=== PATIENT | male | born 1975 | race Caucasian/White ===

== ENCOUNTER 2019-12-30 10:55 | Emergency (ER) | payer OTHER, SELFPAY ==
[2019-12-30 10:56] VITALS: BP 193/106; PULSE 67; RESP 28; TEMP 36.6; O2SAT 98; BMI 26.9
[2019-12-30 11:22] LABS: Microscopic, Urine URINE MICROSCOPIC (MICROSCOPIC)
[2019-12-30 11:29] LABS: Basophils # 0.1 K/mm3 (0-0.2); Basophils % 0.5 % (0.1-2.0); Eosinophils # 0.1 K/mm3 (0.0-0.4); Hematocrit 51.7 % (42.0-52.0); Hemoglobin 17.4 g/dL (14.1-18.0); Lymphocytes # 2.5 K/mm3 (0.7-4.5); Lymphocytes % 18.1 % (10-50); Mean Corpuscular HGB Conc 33.6 g/dL (31.8-35.4); Mean Corpuscular Hemoglobin 31.5 pg (27.0-31.2); Mean Corpuscular Volume 93.7 fl (80-94); Mean Platelet Volume 7.9 fl (7.4-10.4); Monocytes # 0.6 K/mm3 (0.1-1.0); Neutrophils # 10.5 K/mm3 (1.8-7.8); Neutrophils % 76.3 % (37.0-80.0); Platelet Count 272 K/mm3 (142-424); Red Blood Count 5.51 M/mm3 (4.60-6.20); Red Cell Distribution Width 13.4 % (11.5-17.5); White Blood Count 13.7 K/mm3 (4.8-10.8)
[2019-12-30 11:30] LABS: Chloride 104 mmol/L (98-107); Sodium 141 mmol/L (136-145)
[2019-12-30 11:31] LABS: Potassium 4.7 mmoL/L (3.5-5.1)
[2019-12-30 11:33] LABS: Blood Urea Nitrogen 19 mg/dl (9-20); Creatinine Clearance Estimated 157 mL/min (50-200); Estimated Glomerular Filt Rate 105 ml/min (>60); GFR (African American) 126 ML/MIN (>60)
[2019-12-30 11:34] LABS: Anion Gap 14.7 mEq/L (5-15); Appearance,Urine CLEAR (Clear); Bilirubin,Urine Negative (Negative); Blood, Urine 3+ (Negative); Calcium 10.4 mg/dl (8.4-10.2); Carbon Dioxide 27 mmol/L (22.0-30.0); Color,Urine YELLOW (Yellow); Glucose 129 mg/dl (74-100); Glucose,Urine (UA) Negative (Negative); Ketones,Urine Negative (Negative); Leukocyte Esterase,Urine Negative (Negative); Nitrate,Urine Negative (Negative); PH,Urine 6.5 (5.0-8.5); Protein,Urine Negative (Negative); Urobilinogen,Urine 0.2 EU/dl (0.2)
[2019-12-30 11:39] LABS: RBC,Urine 20-50 #/hpf (0-3)
[2019-12-30 11:56] VITALS: BP 128/69; PULSE 62; O2SAT 98
--- NOTE | 2019-12-30 12:09 | HMH.EDGENADL ---
ED Disposition Clinical Impression: Right ureteral calculus Disposition: Home, Self-Care Condition on Discharge: Good Additional Instructions: Toradol as needed for pain. Zofran as needed for nausea. Flomax as prescribed. Additional instructions for KIDNEY STONE (URETERAL CALCULUS): See Dr. Mathews as soon as possible for further evaluation. Drink plenty of fluids. Strain your urine and save any stones you catch. Return immediately if you develop a fever or have uncontrollable vomiting or uncontrollable pain. Prescriptions: Ketorolac Tromethamine [Toradol 10mg tablet] 10 mg PO Q6HP PRN #10 tab PRN Reason: Moderate Pain Transmission Status: Received by [id number] Tamsulosin HCl [Flomax 0.4mg capsule] 0.4 mg PO HS #10 cap.er.24h Transmission Status: Received by [facility] Ondansetron [Zofran 4mg ODT] 4 mg PO TIDP PRN #10 tab.rapdis PRN Reason: Nausea And Vomiting Transmission Status: Received by [id number] Referrals: Jere Mixon [Primary Care Provider] - Tyrese Mathews MD [Staff Physician] - - Critical Care Critical Care Time: No Attestation: On 12/30/19, the high probability of a clinically significant, sudden or life threatening deterioration of the following system(s) required my full and direct attention, intervention and personal management. The time I documented below is in addition to time spent performing reported procedures but includes the following listed in this critical care notation. Medical Decision Making - Medical Records Medical records reviewed: Yes: I reviewed the patient's medical records. MR Comment: CT scan report obtained from [facility]. 5 mm stone distal right UVJ with mild to moderate hydroureteronephrosis. Bilateral nephrolithiasis. Diverticulosis. - Pablo Inquiry Pt receiving controlled substance: Yes Pablo was queried for this patient: No Reason not queried -: Emergent pt cond-no time Risks and benefits of using a controlled substance: were discussed with pt by me Vital Signs: 12/30/19 10:56 12/30/19 11:56 12/30/19 13:14 Temperature 98 F 98 F Temperature Source Oral Oral Pulse Rate 78 Pulse Rate [Radial] 67 62 Respiratory Rate 28 H 16 Blood Pressure 123/74 Blood Pressure [Right Arm] 193/106 H 128/69 Blood Pressure Mean [Right Arm] 135 88 Blood Pressure Position Sitting Blood Pressure Position [Right Arm] Sitting Sitting 02 Sat by Pulse Oximetry 98 98 Oxygen Delivery Method Room Air Room Air - Lab Data Lab results reviewed: Yes: I reviewed the patient's lab results. Lab Results 12/30/19 11:10: WBC 13.7 H, RBC 5.51, Hgb 17.4, Hct 51.7, MCV 93.7, MCH 31.5 H, MCHC 33.6, RDW 13.4, Plt Count 272, MPV 7.9, Neut % (Auto) 76.3, Lymph % (Auto) 18.1, [place] % (Auto) 4.0, Eos % (Auto) 1.0, Baso % (Auto) 0.5, Neut # (Auto) 10.5 H, Lymph # (Auto) 2.5, [place] # (Auto) 0.6, Eos # (Auto) 0.1, Baso # (Auto) 0.1 12/30/19 11:10: Sodium 141, Potassium 4.7, Chloride 104, Carbon Dioxide 27, Anion Gap 14.7, BUN 19, Creatinine 0.80, Estimated Creat Clear 157, Estimated GFR 105, Est GFR ( Amer) 126, Glucose 129 H, Calcium 10.4 H 12/30/19 11:10: Urine Color Yellow, Urine Appearance Clear, Urine pH 6.5, Ur Specific [place] 1.020, Urine Protein Negative, Urine Glucose (UA) Negative, Urine Ketones Negative, Urine Blood 3+, Urine Nitrate Negative, Urine Bilirubin Negative, Urine Urobilinogen 0.2, Ur Leukocyte Esterase Negative, Urine RBC 20-50, Urine WBC 3-5, Ur Squamous Epith Cells 3-5, Urine Bacteria None Result diagrams: 12/30/19 11:10 12/30/19 11:10 Orders (Tests/Meds): ED MEDICATIONS Discontinued Medications Generic Name Dose Route Start Last Admin Trade Name [place] PRN Reason Stop Dose Admin Hydromorphone HCl 1 mg 12/30/19 11:35 12/30/19 11:05 Hydromorphone 2mg/Ml Syringe IV 12/30/19 11:36 1 mg ONCE ONE Administration Hydromorphone HCl 0.5 mg 12/30/19 12:23 12/30/19 12:51 [employer]dromorp
[2019-12-30 13:14] VITALS: BP 123/74; PULSE 78; RESP 16; TEMP 36.6; O2SAT 98
== END 2019-12-30 13:17 | disposition home or self-care (01) ==
PROVIDERS: Emergency Provider Emergency Medicine; PCP Family Medicine
DX: N13.2 Hydronephrosis with renal and ureteral calculous obstruction (principal)
CPT/HCPCS: 80048; 81001; 85025; 96365; 96375; 96376; 99283; J2405

== ENCOUNTER → 2021-03-03 13:08 | Outpatient (CLI) | payer OTHER, SELFPAY | PROVIDERS: Visit Provider Nurse Practitioner | DX: Z20.822 Contact with and (suspected) exposure to COVID-19 (principal) | CPT/HCPCS: C9803; U0003; U0005 ==

== ENCOUNTER 2022-11-10 07:54 | Observation (INO) | payer BC, SELFPAY ==
[2022-11-10] VITALS (82 sets, daily range): BP systolic 106–200; BP diastolic 65–116; PULSE 71–97; RESP 10–77; TEMP 36.7–36.8; O2SAT 89–100; BMI 35.9; BMI 36.5
--- NOTE | 2022-11-10 07:56 | ECG_ITS ---
APPROVED REPORT Exam: Resting ECG HR:76 bpm ECG Measurements Heart Rate 76 AXES MA 153 P 58 QRSd 113 QRS 75 QT 376 T 71 QTc 406 Conclusion SINUS RHYTHM Late r wave progression - probable old septal infarct Old nonsignificant in size q waves noted ABNORMAL ECG UNCONFIRMED REPORT Electronically signed by : Evans Gonzalez MD 11/11/2022 07:33:37
--- NOTE | 2022-11-10 08:06 | CT_ITS ---
PROCEDURE INFORMATION: Exam: CTA Chest With Contrast Exam date and time: 11/10/2022 8:48 AM Age: 47 years old Clinical indication: Pain; Radiating; Additional info: Chest pain radiating to back TECHNIQUE: Imaging protocol: Computed tomographic angiography of the chest with contrast. Exam focused on the arteries. 3D rendering (Not supervised by radiologist): MIP and/or 3D reconstructed images were created by the technologist. Radiation optimization: All CT scans at this facility use at least one of these dose optimization techniques: automated exposure control; mA and/or kV adjustment per patient size (includes targeted exams where dose is matched to clinical indication); or iterative reconstruction. Contrast material: ISOVUE 370; Contrast volume: 100 ml; Contrast route: INTRAVENOUS (IV); REPORTING DATA: Count of CT and Cardiac NM exams in prior 12 months: This patient has received 0 known CTs and 0 known cardiac nuclear medicine studies in the 12 months prior to the current study. COMPARISON: No relevant prior studies available. FINDINGS: Pulmonary arteries: Normal. No pulmonary emboli. Aorta: Unremarkable. No aortic aneurysm. No aortic dissection. Lungs: Calcified granuloma in the right upper lobe. Pleural spaces: Unremarkable. No pneumothorax. No pleural effusion. Heart: Unremarkable. No cardiomegaly. No pericardial effusion. Lymph nodes: Calcified mediastinal lymph nodes. Bones/joints: Unremarkable. No acute fracture. Soft tissues: Unremarkable. IMPRESSION: No acute findings.
--- NOTE | 2022-11-10 08:08 | CT_ITS ---
PROCEDURE INFORMATION: Exam: CTA Abdomen and Pelvis With Contrast Exam date and time: 11/10/2022 8:48 AM Age: 47 years old Clinical indication: Abdominal pain; Generalized; Additional info: Severe chest/abd pain radiating to back TECHNIQUE: Imaging protocol: Computed tomographic angiography of the abdomen and pelvis with contrast. Exam focused on the arteries. 3D rendering (Not supervised by radiologist): MIP and/or 3D reconstructed images were created by the technologist. Radiation optimization: All CT scans at this facility use at least one of these dose optimization techniques: automated exposure control; mA and/or kV adjustment per patient size (includes targeted exams where dose is matched to clinical indication); or iterative reconstruction. Contrast material: ISOVUE 370; Contrast volume: 100 ml; Contrast route: INTRAVENOUS (IV); REPORTING DATA: Count of CT and Cardiac NM exams in prior 12 months: This patient has received 0 known CTs and 0 known cardiac nuclear medicine studies in the 12 months prior to the current study. COMPARISON: No relevant prior studies available. FINDINGS: Aorta: No aortic aneurysm. No aortic dissection. Celiac trunk and mesenteric arteries: No occlusion or significant stenosis. 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 Right iliac arteries: No occlusion or significant stenosis. Left iliac arteries: No occlusion or significant stenosis. Liver: Faint area of enhancement in the right hepatic lobe could reflect a small hemangioma or vascular shunt. Gallbladder and bile ducts: Unremarkable. No calcified stones. No ductal dilation. Pancreas: Unremarkable. No mass. No ductal dilation. Spleen: Calcified splenic granulomas. Adrenal glands: Unremarkable. No mass. Kidneys and ureters: Nonobstructing bilateral renal calculi. Stomach and bowel: Colonic diverticulosis without evidence of diverticulitis. No bowel obstruction. Appendix: No evidence of appendicitis. Intraperitoneal space: Unremarkable. No free air. No significant fluid collection. Lymph nodes: Unremarkable. No enlarged lymph nodes. Urinary bladder: Unremarkable. No mass. Reproductive: Unremarkable as visualized. Bones/joints: No acute fracture. Soft tissues: Unremarkable. IMPRESSION: 1. No acute findings. 2. 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
[2022-11-10 08:14] LABS: Basophils # 0.1 K/mm3 (0-0.2); Basophils % 0.9 % (0.1-2.0); Eosinophils # 0.3 K/mm3 (0.0-0.4); Eosinophils % 2.6 % (0.1-12.0); Hematocrit 50.7 % (42.0-52.0); Hemoglobin 16.4 g/dL (14.1-18.0); Lymphocytes # 2.8 K/mm3 (0.7-4.5); Lymphocytes % 24.2 % (10-50); Mean Corpuscular HGB Conc 32.4 g/dL (31.8-35.4); Mean Corpuscular Hemoglobin 30.1 pg (27.0-31.2); Mean Corpuscular Volume 92.7 fl (80-94); Mean Platelet Volume 8.1 fl (7.4-10.4); Monocytes # 0.6 K/mm3 (0.1-1.0); Monocytes % 5.3 % (1.7-9.3); Neutrophils # 7.7 K/mm3 (1.8-7.8); Platelet Count 231 K/mm3 (142-424); Red Blood Count 5.46 M/mm3 (4.60-6.20); Red Cell Distribution Width 13.7 % (11.5-17.5); White Blood Count 11.4 K/mm3 (4.8-10.8)
[2022-11-10 08:16] LABS: Chloride 104 mmol/L (98-107); Potassium 4.3 mmoL/L (3.5-5.1); Sodium 142 mmol/L (136-145)
--- NOTE | 2022-11-10 08:16 | ECG_ITS ---
APPROVED REPORT Exam: Resting ECG HR:80 bpm ECG Measurements Heart Rate 80 AXES MA 161 P 90 QRSd 109 QRS 79 QT 387 T 93 QTc 423 Conclusion SINUS RHYTHM WITH FREQUENT VENTRICULAR PREMATURE COMPLEXES ABNORMAL RHYTHM ECG UNCONFIRMED REPORT Electronically signed by : Evans Gonzalez MD 11/11/2022 07:32:42
[2022-11-10 08:18] LABS: Alanine Aminotransferase 42 U/L (12-78); Blood Urea Nitrogen 16 mg/dl (9-20); Creatinine Clearance Estimated 203 mL/min (50-200); Estimated Glomerular Filt Rate 103 ml/min (>60); GFR (African American) 125 ML/MIN (>60)
--- NOTE | 2022-11-10 08:18 | PC.NURSE ---
changes noted in cardiac rhythm, repeat ekg done and MD advised
[2022-11-10 08:19] LABS: Albumin Level 4.5 g/dl (3.5-5.0); Albumin/Globulin Ratio 1.2 (1.1-1.8); Alkaline Phosphatase 99 U/L (38-126); Anion Gap 15.3 mEq/L (5-15); Aspartate Amino Transferase 39 U/L (17-59); Bilirubin,Total 0.6 mg/dl (0.2-1.3); Carbon Dioxide 27 mmol/L (22.0-30.0); Globulin 3.7 g/dL (1.3-3.2); Glucose 150 mg/dl (74-100); Lipase 23 U/L (23-300); Total Protein,Serum 8.2 g/dl (6.3-8.2)
--- NOTE | 2022-11-10 08:20 | HMH.EDGENADL ---
Discharge Plan Disposition Patient Disposition: Admitted Condition: Good Clinical Impressions Clinical Impression: Chest pain, Intractable nausea and vomiting, Aneurysm artery, renal Discharge ED Provider: Morelia Ortiz General Adult HPI General Chief complaint: Chest Pain Stated complaint: chest pain Time Seen by Provider: 11/10/22 07:56 Mode of Arrival: Ambulatory Source of Information: Patient Limitations: No Limitations Description of Symptoms (Recalled from ER Triage Doc. by RN): pt to ed c/o light center chest pain and nausea. pt states the pain goes through to the shoulder blades. pt reports the pain being present when he woke up this morning. pt denies taking any morning meds. History of Present Illness HPI narrative: This patient is a 47-year-old male who reports a history of hypertension, hyperlipidemia, kidney stones, SD, and CVA on aspirin and Plavix presenting to the emergency department for evaluation with concern for severe abdominal and chest pain radiating to his back. He states that it feels like it is between his shoulder blades. He states that is presently woke up this morning. He did not take medications prior to arrival. He states that this is the worst pain that he has felt in his life. He reports associated nausea, but denies any recent fevers, cough, congestion, vomiting, changes in bowel movements, changes in urination, or other concerns. Nothing seems to make it better or worse. Related Data Home Medications Medication Instructions Recorded Confirmed modafinil 200 mg tablet 200 mg PO DAILY Narcolepsy 11/10/22 11/10/22 Allergies Allergy/AdvReac Type Severity Reaction Status Date / Time No Known Allergies Allergy Verified 12/30/19 11:29 [facility] Disclaimer: The information contained in this section may have been updated after the patient was seen, as this information can be updated by other users. Social History Smoking Status: Never smoker alcohol intake: never current occupational status: employed Travel in the last 8 weeks: None ROS Obtained: Yes All systems reviewed & no additional complaints except as documented Physical Exam General General appearance: alert, anxious and obese Comment: Visibly uncomfortable, rolling around in bed crying Head Head exam: atraumatic and normocephalic Eye Eye exam: Present normal appearance, PERRL and EOMI ENT ENT exam: Present normal exam, normal oropharynx, mucous membranes moist and normal external ear exam Neck Neck exam: Present normal inspection, full ROM and trachea midline; Absent tenderness Chest Chest inspection: Present normal inspection and symmetric chest wall rise; Absent tenderness Respiratory Respiratory exam: Present normal lung sounds bilaterally; Absent respiratory distress, wheezes, stridor or accessory muscle use Cardiovascular Cardiovascular exam: Present regular rate, normal rhythm, normal heart sounds and other (pulses equal bilaterally); Absent systolic murmur, diastolic murmur or rubs Abdominal Exam Abdominal exam: Present soft and tenderness (generalized); Absent distention, guarding, rebound or rigidity Extremities Exam Extremities exam: Present normal inspection, full ROM and normal capillary refill; Absent tenderness or edema Back Exam Back exam: Present normal inspection and full ROM; Absent tenderness Neurological Exam Neurological exam: Present alert, oriented X3, CN II-XII intact and normal gait; Absent motor sensory deficit Psychiatric Psychiatric exam: Present anxious Skin Skin exam: Present warm and dry Medical Decision Making Medical Records Medical records reviewed: Yes I reviewed the patient's medical records. Pablo Inquiry Pt receiving controlled substance: No Vital Signs: 11/10/22 08:11 11/10/22 07:58 11/10/22 08:00 Temperature 98.1 F Temperature Source Oral Pulse Rate 78 79 Pulse Rate [Left Radial] 81 Respira
[2022-11-10 08:33] LABS: Troponin I < 0.01 ng/ml (0.00-0.034)
--- NOTE | 2022-11-10 09:52 | PC.NURSE ---
pt given warm blanket, advised nurse that he was hurting again
--- NOTE | 2022-11-10 10:30 | PC.NURSE ---
Rounded on pt he was asleep in bed,call light at bs
[2022-11-10 12:26] LABS: Troponin I 0.02 ng/ml (0.00-0.034)
--- NOTE | 2022-11-10 12:58 | ECG_ITS ---
APPROVED REPORT Exam: Resting ECG HR:77 bpm ECG Measurements Heart Rate 77 AXES IN 158 P 55 QRSd 110 QRS 77 QT 377 T 74 QTc 409 Conclusion SINUS RHYTHM NORMAL ECG UNCONFIRMED REPORT Electronically signed by : Evans Gonzalez MD 11/11/2022 07:31:29
--- NOTE | 2022-11-10 13:35 | PC.NURSE ---
Checked on pt he is sleeping in bed,call light at bs
--- NOTE | 2022-11-10 13:37 | PC.NURSE ---
pt sleeping pt woke up when I entered room, pt woke up. Pt started PO challenge at this time with water
--- NOTE | 2022-11-10 13:49 | PC.NURSE ---
Dr Ortiz on with Sherry from Cardiology
--- NOTE | 2022-11-10 14:12 | PC.NURSE ---
DEAN Díaz at BS
--- NOTE | 2022-11-10 14:23 | PC.NURSE ---
Dr. Kramer -cardiology at BS
--- NOTE | 2022-11-10 14:27 | EXP.HP ---
History of Present Illness *Admission Date: 11/10/22 *Reason for visit:: chest pain *History of present illness: Mr. Mendez is a 47-year-old male with history of CAD, post MS with stenting 1 year ago. 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 Patient continues to smoke. Presented to the ER today with onset of chest pain that radiates to his back. Followed by nausea and vomiting. Has been having some worsening shortness of breath for the past 6 months with a squeezing sensation of his chest that acutely became worse when he woke up this morning. History of taking aspirin, Plavix, Effient at home. Has been getting his medications through his primary care provider in [place]. Additionally patient is on Suboxone (20 mg buprenorphine) daily with last dose taken yesterday. In the ER, work-up with multiple EKG showing no ST changes. Initial troponin less than 0.01. Repeat 0.02. Given inability to improve pain, ER consulted medicine for further monitoring of unstable angina and cardiology consult. Of note, CT of chest obtained showing no dissection or PE. 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 Systolic blood pressure 170-190. Patient has received multiple different medications for pain and nausea with no significant benefit. On arrival to the floor, he appears to be comfortable. Is on a nitroglycerin drip. When awoken however complains of pain being severe but then dozes back off to sleep. Denies any syncope, blood in his vomit or stool. States he had an episode of diarrhea today. on ambient air. [facility] Disclaimer: The information contained in this section may have been updated after the patient was seen, as this information can be updated by other users. Medical History Brain aneurysm HLD (hyperlipidemia) HTN (hypertension) Kidney stones Memory loss Narcolepsy NASREEN (obstructive sleep apnea) Renal arterial aneurysm Stroke Surgical History H/O heart artery stent Hx of cardiac cath Social History Smoking Status: Never smoker alcohol intake: never current occupational status: employed Travel in the last 8 weeks: None Review of Systems Review of Systems Review of systems (narrative): 14 point review of systems performed, pertinent positives and negatives as per HPI Meds Home Medications and Allergies Home Medications Medication Instructions Recorded Confirmed Type amlodipine 10 mg tablet 10 mg PO DAILY blood pressure 11/10/22 11/10/22 History atorvastatin 80 mg tablet 80 mg PO HS Cholesterol 11/10/22 11/10/22 History buprenorphine 8 mg-naloxone 2 mg 2.5 tab sublingual DAILY WITHDRAWAL 11/10/22 11/10/22 History sublingual tablet clopidogrel 75 mg tablet 75 mg PO DAILY Blood Thinner 11/10/22 11/10/22 History ezetimibe 10 mg tablet 10 mg PO DAILY Cholesterol 11/10/22 11/10/22 History isosorbide mononitrate 30 mg 30 mg PO DAILY blood pressure 11/10/22 11/10/22 History tablet,extended release 24 hr metoprolol succinate 50 mg 50 mg PO DAILY Heart rate/blood 11/10/22 11/10/22 History tablet,extended release 24 hr pressure modafinil 200 mg tablet 200 mg PO DAILY Narcolepsy 11/10/22 11/10/22 History nitroglycerin 0.4 mg sublingual 0.4 mg sublingual Q5MINP PRN Chest 11/10/22 11/10/22 History tablet Pain pantoprazole 40 mg tablet,delayed 40 mg PO DAILY GERD 11/10/22 11/10/22 History release prasugrel 10 mg tablet 10 mg PO DAILY Blood Thinner 11/10/22 11/10/22 History valsartan 80 mg tablet 80 mg PO DAILY Blood pressure 11/10/22 11/10/22 History New Prescriptions to Start Prescriptions: Allergies Allergy/AdvReac Type Severity Reaction Status Date / Time No Known Allergies Allergy Verified 12/30/19 11:29 Exam Data for Last 24 hours Vital signs and Labs fo
--- NOTE | 2022-11-10 14:31 | CT_ITS ---
FINAL REPORT CLINICAL HISTORY: Hx of cerebral aneurysm, has ODONNELL and vertigo FINDINGS: Axial images of the head were obtained without contrast. Coronal reformatted images were also obtained.This study was performed with techniques to keep radiation doses as low as reasonably achievable (ALARA). Individualized dose reduction techniques using automated exposure control or adjustment of mA and/or kV according to the patient''s size were employed. There are postoperative changes in the brain anteriorly. There is left frontal area of encephalomalacia. There is also an area of right frontal encephalomalacia. There is no evidence of intracranial hemorrhage or mass. The ventricular size is within normal limits. There is no evidence of shift of the midline structures. No abnormal extra axial fluid collection is identified. No skull abnormality is seen on the bone window images. 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 There is mild mucosal thickening in the left maxillary sinus. IMPRESSION: No acute intracranial abnormality. Chronic and postoperative changes as above. Reviewed, Interpreted and Dictated by Dinesh Newsome III, MD Transcribed by Anais Heath Authenticated and [facility]
--- NOTE | 2022-11-10 14:34 | EXP.CARD.CON ---
History of Present Illness History of Present Illness Consult date: 11/10/22 Requesting physician: Jose Veronica Consult reason: chest pain Chief complaint: Chest pain History of present illness: 47-year-old white male with history of CAD status post AR with stenting approximately 1 year ago at [facility]. He also has history of hemorrhagic CVA approximately 15 years ago. Review of his medicine list indicates he is on aspirin Plavix and Effient at home and he smokes approximately 1 pack/day. Patient states for 6 months he has had worsening episodes of shortness of breath and a squeezing sensation in his chest which is relieved with rest or nitroglycerin. He woke up this morning with a much more severe episode with tight pressure between his shoulder blades. He presented to the ER and has been here for nearly 7 hours with normal serial troponins. He has had numerous EKGs which are largely normal, one EKG showed trigeminal PVCs but there is no axis deviation or ST changes. CTA chest shows no dissection or PE. His blood pressures have been ranging 170?180 systolic. His labs are unremarkable. He has been admitted to the hospitalist for ongoing symptoms we are consulted to help with evaluation. During evaluation patient appears slightly diaphoretic and is complaining of severe nausea and headache with vertigo. [facility] Disclaimer: The information contained in this section may have been updated after the patient was seen, as this information can be updated by other users. Social History (Updated 11/10/22 @ 14:49 by Morelia Ortiz DO) Smoking Status: Never smoker alcohol intake: never current occupational status: employed Travel in the last 8 weeks: None Review of Systems Constitutional Constitutional: Denies fatigue and Reports weakness Eyes Eyes: Denies loss of vision and Reports photophobia ENT Ears, Nose, Mouth, and Throat: Reports dizziness, Denies hearing loss and Denies vertigo *Cardiovascular Cardiovascular: Reports chest pain, Reports dyspnea and Denies syncope *Respiratory Respiratory: Denies cough and Reports dyspnea *Gastrointestinal Gastrointestinal: Denies change in stool character, Reports nausea and Denies vomiting *Genitourinary Genitourinary: Denies difficulty urinating *Musculoskeletal Musculoskeletal: Denies muscle weakness Integumentary/Breasts Skin/Breast: Denies changing lesions *Neurologic Neurologic: Reports dizziness, Denies loss of vision, Denies syncope, Denies vertigo, Reports weakness and Reports other (headache) Endocrine Endocrine: Denies fatigue Exam Data for Last 24 hours Vital signs and Labs for Last 24 Hours: Temp Pulse Resp BP Pulse Ox O2 Del Method 98.1 F 86 12 179/105 H 94 L Room Air 11/10/22 08:11 11/10/22 13:50 11/10/22 13:50 11/10/22 13:50 11/10/22 13:50 11/10/22 08:11 Laboratory Results - last 24 hr 11/10/22 08:05: WBC 11.4 H, RBC 5.46, Hgb 16.4, Hct 50.7, MCV 92.7, MCH 30.1, MCHC 32.4, RDW 13.7, Plt Count 231, MPV 8.1, Neut % (Auto) 67.0, Lymph % (Auto) 24.2, [place] % (Auto) 5.3, Eos % (Auto) 2.6, Baso % (Auto) 0.9, Neut # (Auto) 7.7, Lymph # (Auto) 2.8, [place] # (Auto) 0.6, Eos # (Auto) 0.3, Baso # (Auto) 0.1, Sodium 142, Potassium 4.3, Chloride 104, Carbon Dioxide 27, Anion Gap 15.3 H, BUN 16, Creatinine 0.80, Estimated Creat Clear 203, Estimated GFR 103, Est GFR ( Amer) 125, Glucose 150 H, Calcium 9.0, Total Bilirubin 0.6, AST 39, ALT 42, Alkaline Phosphatase 99, Troponin I < 0.01, Total Protein 8.2, Albumin 4.5, Globulin 3.7 H, Albumin/Globulin Ratio 1.2, Lipase 23 11/10/22 11:49: Troponin I 0.02 I & O for Last 24 hours: Intake & Output 11/07/22 11/08/22 11/09/22 11/10/22 23:59 23:59 23:59 23:59 Weight 280 lb Constitutional Constitutional: mild distress and cooperative *Routine HEENT Exam Eye: Present PERRL *Routine Respiratory Exam Respiratory: Present CTA bilaterally; Absent accessory muscle use, wheezes or crackles *Routine
--- NOTE | 2022-11-10 14:36 | PC.NURSE ---
cardiology added nitro drip order on pt. clean up supervisor aware, state will change pt room assignment for Step down bed
[2022-11-10 15:04] LABS: Troponin I 0.02 ng/ml (0.00-0.034)
--- NOTE | 2022-11-10 15:20 | PC.NURSE ---
arrived to floor by w/c from ED
--- NOTE | 2022-11-10 16:02 | PC.NURSE ---
[address] Veronica face to face that pt was present on the floor at this time. notified that nitro drip was increased to 10mcg r/t bp still in the 170's sys. notified that pt is stating he is in [place] at this time. pt has had numerous meds in the er for pain and nausea. at this time pt does not have any meds ordered for pain.
--- NOTE | 2022-11-10 16:07 | PC.NURSE ---
as of 1549 pt refuses to take any meds by mouth r/t nausea. pt also states that he refuses to wear his cpap as it will make his nausea worse. md quintanilla
--- NOTE | 2022-11-10 17:51 | PC.NURSE ---
Addendum entered by Jacquelin Ceballos RN 11/10/22 19:26: 1925 drip decreased to 5 mcg r/t bp 139/85 Original Note: upon arrival to the unit, pt nitro drip was infusing at 5mcg. 1535 drip increased to 10mcg r/t bp 195/104 1559 drip decreased to 8mcg r/t bp 152/84 1729 drip increased to 10mcg r/t bp 171/102
[2022-11-10 17:53] LABS: PTT Heparin (inpatient only) 31.5 Seconds (23.6-34.0)
--- NOTE | 2022-11-10 19:49 | PC.NURSE ---
[address] llamas that pt to bring in home cpap in am. pt has deepthi and is desatting on monitor. per md ok to place pt on o2. do not place bipap on pt this evening r/t pt having nausea and at risk for aspiration.
--- NOTE | 2022-11-10 21:30 | PC.NURSE ---
Pt requested suboxone, stating he feels like he needs it, and doesn't want to get sick. Felisha [employer] ARCHITECT notified and orders carried out.
[2022-11-11] VITALS (30 sets, daily range): BP systolic 100–148; BP diastolic 60–82; PULSE 67–91; RESP 12–20; TEMP 36.6–36.9; O2SAT 87–99; BMI 36.4
[2022-11-11 00:50] LABS: PTT Heparin (inpatient only) 35.7 Seconds (23.6-34.0)
--- NOTE | 2022-11-11 00:57 | PC.NURSE ---
spoke with hallie with [facility]. PTT- 35.7. orders received for 4000 units bolus of heparin and increase heparin gtt to 1500 units/hr. States she will put orders in and change gtt rate on APR.
--- NOTE | 2022-11-11 01:40 | PC.NURSE ---
Nitro gtt 1939- incresed to 10 mcg/min r/t bp 151/97 2039- decreased to 5mcg/min r/t bp 108/65 2109- gtt put on standby r/t bp 106/71 most recent bp 107/66 @0130. Gtt remains on standby at this time.
--- NOTE | 2022-11-11 06:00 | CA_ITS ---
APPROVED REPORT EXAM: Comprehensive 2D, Doppler, and color-flow Echocardiogram Computer Assistant: Renetta Valentin RDCS Ht: 6 ft 2 in Wt: 284lbs BSA: 2.52 BP: 125/80 mmHg Indications: ACS,CAD,CP 2D Dimensions LVOT 2.27 cm (M/F) 1.5-2.5 M-Mode Dimensions RVDd 1.62 cm (0.9-2.6) LA Diam 2.96 cm (1.9-4.0) LVDd 6.53 cm (3.5-5.7) Ao Diam 4.19 cm (2.0-3.7) LVDs 4.51 cm (3.5-5.7) IVSd 0.93 cm (0.6-1.1) PWd 1.08 cm (0.6-1.1) EF (Teich) 57.40% FS 30.90% EDV (Teich) 218.30 mL TAPSE 2.91 (<1.7) ESV (Teich) 92.90 mL LV Diastology E Decel Time 230.00 (160-240 msec) E/A Ratio 0.8 MED E' 7.30 (< 7 cm/sec) E'/MED E' Ratio 9.53 (>14) LAT E' 7.90 (<10 cm/sec) E/LAT E' Ratio 8.81 (>14) Aortic Valve LVOT Max 100.00 (70-110 cm/s) LVOT VTI 20.95 cm AoV Peak Shantanu. 135.00 (50-130 cm/s) AO Peak GR. 7.30 mmHg AO Mean GR. 3.60 (<5 mmHg) AO VTI 23.18 (18-25 cm) POLLO (VTI) 3.66 (2.5-4.5 cm2) Mitral Valve MV E Max Shantanu. 70.00 (40-130 cm/s) MV A Velocity 91.00 (40-130 cm/s) E/A Ratio 0.77 MV Decel. Time 230.00 (160-240 ms) MV PHT 67.00 ms Left Ventricle The left ventricle is normal size. The left ventricular systolic function is normal. The left ventricular ejection fraction is within the normal range. There is normal left ventricular wall thickness. There is normal LV segmental wall motion. There is mild hypokinesis of the anterior, anteroseptal, and anterolateral LV spangler. The left ventricular diastolic function is normal. LVEF is 55%. Right Ventricle The right ventricle is normal size. The right ventricular systolic function is normal. Atria The left atrium size is normal. The right atrium size is normal. There is no Doppler evidence of interatrial shunt. Aortic Valve The aortic valve is mildly thickened, cannot rule out bicuspid aortic valve. There is no aortic valvular stenosis. Trace aortic regurgitation. Mitral Valve The mitral valve is normal in structure. No evidence of mitral valve stenosis. Trace mitral regurgitation. Tricuspid Valve The tricuspid valve leaflets are thin and pliable. Trace tricuspid regurgitation. There is insufficient TR jet to estimate RVSP. Pulmonic Valve The pulmonary valve is normal in structure. Trace pulmonic regurgitation. Great Vessels The aortic root is normal in size. The ascending aorta is normal in size. IVC is normal in size and collapses >50% with inspiration. Pericardium There is no pericardial effusion. Other Information Study Quality: Fair Conclusion Normal biventricular systolic function. Mild hypokinesis of the anterior, anteroseptal, and anterolateral LV spangler. Aortic valve is mildly thickened, cannot rule out bicuspid aortic valve. No significant valvular stenosis or regurgitation. Electronically signed by : Nia Li MD 11/13/2022 19:30:32
[2022-11-11 06:07] LABS: Basophils # 0.1 K/mm3 (0-0.2); Eosinophils # 0.3 K/mm3 (0.0-0.4); Monocytes # 0.7 K/mm3 (0.1-1.0); Monocytes % 6.5 % (1.7-9.3); Red Cell Distribution Width 13.8 % (11.5-17.5)
--- NOTE | 2022-11-11 06:12 | PC.NURSE ---
Pt has had no complaints this shift. Pt is on 3L NC, and desats to 70-80% while sleeping. Pt o2 sat recovers quickly to >92%. Pt denies CP, SOA, Nausea. Pt has been NSR on tele, with occasional PVC's. Pt is A&OX4, no neurologic deficits noted. Pt has voided per urinal independently. Nitro gtt remains on standby, maintaining SBP<160. Heparin gtt currently infusing @1500 units/hr per APR.
[2022-11-11 06:22] LABS: Basophils % 0.7 % (0.1-2.0); Eosinophils % 2.2 % (0.1-12.0); Hematocrit 45.3 % (42.0-52.0); Lymphocytes # 3.3 K/mm3 (0.7-4.5); Lymphocytes % 29.1 % (10-50); Mean Corpuscular HGB Conc 32.1 g/dL (31.8-35.4); Mean Corpuscular Hemoglobin 29.8 pg (27.0-31.2); Mean Platelet Volume 8.3 fl (7.4-10.4); Neutrophils % 61.6 % (37.0-80.0); Platelet Count 227 K/mm3 (142-424); Red Blood Count 4.87 M/mm3 (4.60-6.20); White Blood Count 11.4 K/mm3 (4.8-10.8)
[2022-11-11 06:24] LABS: PTT Heparin (inpatient only) 55.3 Seconds (23.6-34.0)
[2022-11-11 06:26] LABS: Chloride 103 mmol/L (98-107); Potassium 4.1 mmoL/L (3.5-5.1); Sodium 139 mmol/L (136-145)
[2022-11-11 06:27] LABS: Hemoglobin 14.5 g/dL (14.1-18.0)
[2022-11-11 06:28] LABS: Alanine Aminotransferase 34 U/L (12-78); Alkaline Phosphatase 94 U/L (38-126); Aspartate Amino Transferase 37 U/L (17-59); Bilirubin,Total 0.5 mg/dl (0.2-1.3); Blood Urea Nitrogen 16 mg/dl (9-20); Creatinine Clearance Estimated 206 mL/min (50-200); Estimated Glomerular Filt Rate 103 ml/min (>60); GFR (African American) 125 ML/MIN (>60)
[2022-11-11 06:29] LABS: Albumin/Globulin Ratio 1.3 (1.1-1.8); Anion Gap 12.1 mEq/L (5-15); Calcium 8.7 mg/dl (8.4-10.2); Carbon Dioxide 28 mmol/L (22.0-30.0); Chol/HDL Ratio 6.9 (1-3.5); Cholesterol 159 mg/dl (140-200); Globulin 3.1 g/dL (1.3-3.2); Glucose 111 mg/dl (74-100); HDL Cholesterol 23 mg/dl (40-60); Total Protein,Serum 7.1 g/dl (6.3-8.2); Triglycerides 377 mg/dl (30-150); VLDL Cholesterol 75 mg/dL (0-40)
[2022-11-11 06:42] LABS: Direct LDL Cholesterol 78.94 mg/dL (100-129)
--- NOTE | 2022-11-11 07:55 | HMH.PHAHEP ---
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 (Chronic) Accelerated hypertension (Acute) CVA?: No Bleeding problem?: No Kidney disease?: No TN?: No Desired PTT range:: 50-75 seconds Labs Anticoagulation Lab Results:: 11/10/22 11/11/22 08:05 05:40 Hgb 16.4 14.5 D Hct 50.7 45.3 Plt Count 231 227 Monitoring Dose Monitor 1: Date: 11/10/22 Time: 18:30 PTT Result:: 31.5 (BASELINE) Infusion Rate:: 1,000 UNITS/HR Comment:: 4,000 UNIT BOLUS Dose Monitor 2: Date: 11/11/22 Time: 00:40 PTT Result:: 35.7 Infusion Rate:: INCREASE RATE TO 1,500 UNITS/HR Comment:: 4,000 UNIT BOLUS Dose Monitor 3: Date: 11/11/22 Time: 07:30 PTT Result:: 55.3 Infusion Rate:: 1,500 UNITS/HR Dose Monitor 4: Date: 11/11/22 Time: 13:30 PTT Result:: 46.5 Infusion Rate:: INCREASE RATE TO 1,750 UNITS/HR Comment:: 3,000 UNIT BOLUS Core Measures Is INR > or = 2 at discharge?: No Most Recent Labs:: Laboratory Results - last 24 hr 11/10/22 08:05: WBC 11.4 H, RBC 5.46, Hgb 16.4, Hct 50.7, MCV 92.7, MCH 30.1, MCHC 32.4, RDW 13.7, Plt Count 231, MPV 8.1, Neut % (Auto) 67.0, Lymph % (Auto) 24.2, Stonewall % (Auto) 5.3, Eos % (Auto) 2.6, Baso % (Auto) 0.9, Neut # (Auto) 7.7, Lymph # (Auto) 2.8, [place] # (Auto) 0.6, Eos # (Auto) 0.3, Baso # (Auto) 0.1, APTT 31.5, Sodium 142, Potassium 4.3, Chloride 104, Carbon Dioxide 27, Anion Gap 15.3 H, BUN 16, Creatinine 0.80, Estimated Creat Clear 203, Estimated GFR 103, Est GFR ( Amer) 125, Glucose 150 H, Calcium 9.0, Total Bilirubin 0.6, AST 39, ALT 42, Alkaline Phosphatase 99, Troponin I < 0.01, Total Protein 8.2, Albumin 4.5, Globulin 3.7 H, Albumin/Globulin Ratio 1.2, Lipase 23 11/10/22 11:49: Troponin I 0.02 11/10/22 14:15: Troponin I 0.02 11/10/22 23:40: APTT 35.7 H 11/11/22 05:40: WBC 11.4 H, RBC 4.87, Hgb 14.5 D, Hct 45.3, MCV 93.0, MCH 29.8, MCHC 32.1, RDW 13.8, Plt Count 227, MPV 8.3, Neut % (Auto) 61.6, Lymph % (Auto) 29.1, Stone[place] % (Auto) 6.5, Eos % (Auto) 2.2, Baso % (Auto) 0.7, Neut # (Auto) 7.0, Lymph # (Auto) 3.3, Stone[place] # (Auto) 0.7, Eos # (Auto) 0.3, Baso # (Auto) 0.1, APTT 55.3 H*, Sodium 139, Potassium 4.1, Chloride 103, Carbon Dioxide 28, Anion Gap 12.1, BUN 16, Creatinine 0.80, Estimated Creat Clear 206, Estimated GFR 103, Est GFR ( Amer) 125, Glucose 111 H D, Calcium 8.7, Magnesium 2.0, Total Bilirubin 0.5, AST 37, ALT 34, Alkaline Phosphatase 94, Total Protein 7.1, Albumin 4.0 D, Globulin 3.1, Albumin/Globulin Ratio 1.3, Triglycerides 377 H, Cholesterol 159, LDL Cholesterol Direct 78.94 L, VLDL Cholesterol 75 H, HDL Cholesterol 23 L, Cholesterol/HDL Ratio 6.9 H Were Heparin and Warfarin started on the same day?: No If not, why?: PATIENT DISCHARGED AFTER CATH
--- NOTE | 2022-11-11 09:00 | IR_ITS ---
APPROVED REPORT Patient Location: Inpatient Batch Room Technician: NAUN Sánchez RT (R) PROCEDURES Left heart catheterization Left ventriculogram Selective coronary angiogram Bilateral selective renal angiography INDICATION Known multivessel coronary artery disease, Unstable angina, Severe hypertension suspect renal artery stenosis with renovascular hypertension Informed consent was obtained prior to the procedure. COMPLICATIONS None Estimated Blood Loss: Less than 10 mls TECHNIQUE One percent lidocaine used to anesthetize the right anterior aspect of the wrist. The right radial artery was accessed via the Seldinger technique. A 6 Mohawk sheath was placed in the right radial artery. 2.5 mg of Verapamil, 800 mcg of nitroglycerin, 1mg Lidocaine and 5000 U Heparin were given through the arterial sheath. The papa catheter was also used to perform left heart catheterization, left ventriculogram and selective coronary angiogram. The Poppa catheter was used to perform bilateral selective renal angiography. At the end the procedure the apparatus was removed the sheath was removed and hemostasis was achieved and TR banding patient was transferred to the postop holding in stable condition ANGIOGRAPHIC RESULTS The left main artery Normal The left anterior descending artery Has a stent in the proximal to mid segment which is widely patent free of in-stent restenosis with excellent proximal distal transitioning. A large diagonal artery is widely patent with no angiographic evidence of stenosis The circumflex artery Is nondominant and has an ostial 70% stenosis followed by widely patent stent. The right coronary artery Proximally occluded and fills via [id number] collaterals The CHERY ventriculogram reveals Normal 65% The left ventricular end-diastolic pressure 20 mmHg Right renal artery has an ostial 40% stenosis. There is no hemodynamic gradient upon pullback with the Poppa catheter Left renal artery singular and has a proximal eccentric 20 to 30% stenosis IMPRESSION Severe disease in a nondominant ostial circumflex artery as described above Chronically occluded dominant right coronary artery which fills via [id number] collaterals Normal ejection fraction Elevated LVEDP Nonflow limiting renal artery stenosis PLAN 1. At this point I recommend medical management. Maximize antianginal medications. Should recalcitrant angina continue I would consider bringing patient back to stent the ostial circumflex artery. 2. LDL less than 55 to be achieved with high intensity statin 3. Recommend renal duplex 4. Continue risk factor modification Electronically signed by : Venkat Gracia MD 11/24/2022 13:21:55
--- NOTE | 2022-11-11 10:01 | PC.NURSE ---
pt sleeping at this time.
--- NOTE | 2022-11-11 10:21 | EXP.CARD.PN ---
Subjective Subjective Date: 11/11/22 Time: 10:21 Principal diagnosis: chest pain Interval history: BP and CP improved overnight with Ntg drip. CT head negative for bleed, pt on DAPT and Heparin drip. Normal Cr. Agreeable to proceed with [facility]. Exam Data for Last 24 hours Vital signs and Labs for Last 24 Hours: Temp Pulse Resp BP Pulse Ox O2 Del Method O2 Flow Rate 98 F 78 13 120/75 88 L Room Air 3 11/11/22 07:27 11/11/22 08:00 11/11/22 06:00 11/11/22 06:00 11/11/22 08:00 11/11/22 09:00 11/11/22 06:00 Laboratory Results - last 24 hr 11/10/22 08:05: APTT 31.5 11/10/22 11:49: Troponin I 0.02 11/10/22 14:15: Troponin I 0.02 11/10/22 23:40: APTT 35.7 H 11/11/22 05:40: WBC 11.4 H, RBC 4.87, Hgb 14.5 D, Hct 45.3, MCV 93.0, MCH 29.8, MCHC 32.1, RDW 13.8, Plt Count 227, MPV 8.3, Neut % (Auto) 61.6, Lymph % (Auto) 29.1, [place] % (Auto) 6.5, Eos % (Auto) 2.2, Baso % (Auto) 0.7, Neut # (Auto) 7.0, Lymph # (Auto) 3.3, [place] # (Auto) 0.7, Eos # (Auto) 0.3, Baso # (Auto) 0.1, APTT 55.3 H*, Sodium 139, Potassium 4.1, Chloride 103, Carbon Dioxide 28, Anion Gap 12.1, BUN 16, Creatinine 0.80, Estimated Creat Clear 206, Estimated GFR 103, Est GFR ( Amer) 125, Glucose 111 H D, Calcium 8.7, Magnesium 2.0, Total Bilirubin 0.5, AST 37, ALT 34, Alkaline Phosphatase 94, Total Protein 7.1, Albumin 4.0 D, Globulin 3.1, Albumin/Globulin Ratio 1.3, Triglycerides 377 H, Cholesterol 159, LDL Cholesterol Direct 78.94 L, VLDL Cholesterol 75 H, HDL Cholesterol 23 L, Cholesterol/HDL Ratio 6.9 H I & O for Last 24 hours: Intake & Output 11/08/22 11/09/22 11/10/22 11/11/22 23:59 23:59 23:59 23:59 Intake Total 0 / 0 Output Total 325 / 325 Balance 0 / -325 -325 / -325 Weight 284 lb 5 oz 284 lb 2.813 oz Constitutional Constitutional: no acute distress and cooperative *Routine HEENT Exam Eye: Present PERRL *Routine Respiratory Exam Respiratory: Present CTA bilaterally; Absent accessory muscle use, wheezes or crackles *Routine Cardiovascular Exam Cardiovascular: Present RRR, Normal S1 and Normal S2; Absent murmur, gallop or rubs *Routine Abdominal Exam Abdominal: Present soft; Absent tenderness *Routine Extremities Exam Extremities: Present pulses intact; Absent cyanosis or edema *Routine Skin Exam Skin: Present intact; Absent erythema or wounds *Routine Neurological Exam Neurological: Present alert and oriented X3 Routine Psychiatric Exam Psychiatric: Present cooperative Progress Note: A&P Assessment and plan (1) Chest pain: Status: Acute (2) Intractable nausea and vomiting: Status: Acute (3) Accelerated hypertension: Status: Acute (4) History of hemorrhagic cerebrovascular accident (CVA) without residual deficits: Status: Chronic (5) Coronary artery disease: Status: Chronic (6) Aneurysm artery, renal: Status: Acute Assessment and Plan Assessment and Plan for All Diagnoses:: Multivessel CAD with unstable angina -Patient had MD with stenting early last year at [facility], details of this are unclear at this time -Patient presents with 6 months of worsening episodes of angina pectoris, now occurring at rest -Normal serial troponin and EKG but patient remains at high risk and has required Ntg drip since admission. He is agreeable to left heart cath -His history of cerebral hemorrhage is noted. He has normal head CT here. He has been advised to never again take Effient as this is a strict contraindication. -Clinically stable to resume DAPT and heparin drip -Continue beta-radha and high-dose statin History of hemorrhagic CVA -Occurred approximately 15 years ago, had vertigo then complete loss of consciousness status post craniotomy -Patient presented here with headache nausea vertigo and is on aspirin, Plavix, Effient -Head CT normal. No further symptoms with BP control. Ok to resume DAPT and Heparin Drip for ACS. DC Effient. Hypertension accelerated -BP 170?190 here -unclear ho
--- NOTE | 2022-11-11 12:28 | PC.NURSE ---
pt requests dose of suboxone at this time. spoke with Dr Veronica states to give dose now to pt.
[2022-11-11 14:12] LABS: PTT Heparin (inpatient only) 46.5 Seconds (23.6-34.0)
--- NOTE | 2022-11-11 14:13 | PC.NURSE ---
0732 attempted to report PTT lab result to pharmacist. Pharmacist unavailable at this time, call to be returned. 0747 Papa in pharmacy returned call about PTT. PTT 55.3. no changes in drip rate at this time 1412 lab called with PTT results. 46.5 1413 called and spoke with Papa in pharmacy, new orders to be entered by [facility] staff.
--- NOTE | 2022-11-11 14:55 | PC.NURSE ---
1442 pt off unit with Monica Jenkins RN headed to skilled labor.
--- NOTE | 2022-11-11 16:05 | PC.NURSE ---
Received report from Thang Wilson [facility]
--- NOTE | 2022-11-11 16:38 | EXP.DC.SUM ---
General Admission date:: 11/10/22 Discharge date: 11/11/22 HPI HPI HPI: Mr. Mendez is a 47-year-old male with history of CAD, post VT with stenting 1 year ago. 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 Patient continues to smoke. Presented to the ER today with onset of chest pain that radiates to his back. Followed by nausea and vomiting. Has been having some worsening shortness of breath for the past 6 months with a squeezing sensation of his chest that acutely became worse when he woke up this morning. History of taking aspirin, Plavix, Effient at home. Has been getting his medications through his primary care provider in [place]. Additionally patient is on Suboxone (20 mg buprenorphine) daily with last dose taken yesterday. In the ER, work-up with multiple EKG showing no ST changes. Initial troponin less than 0.01. Repeat 0.02. Given inability to improve pain, ER consulted medicine for further monitoring of unstable angina and cardiology consult. Of note, CT of chest obtained showing no dissection or PE. 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 Systolic blood pressure 170-190. Patient has received multiple different medications for pain and nausea with no significant benefit. On arrival to the floor, he appears to be comfortable. Is on a nitroglycerin drip. When awoken however complains of pain being severe but then dozes back off to sleep. Denies any syncope, blood in his vomit or stool. States he had an episode of diarrhea today. on ambient air. Hospital Course Hospital Course Hospital Course: 47-year-old male with extensive CAD history, hypertensive urgency, chest pain. ER consulted medicine for admission. Given blood pressure, patient needs admission for treatment of hypertension, serial enzymes, further management by cardiology. Discussed case extensively with the ER. Medicine agreed to admit. Cardiology consulted, appreciate their recommendations. Discussed case with cardiology and recommend n.p.o. at midnight for heart cath tomorrow. Initiated on nitroglycerin drip for blood pressure and chest pain. Recommend CT of the head to evaluate for any intracranial abnormalities or bleeds given patient's history of hemorrhage. We will consider initiating heparin drip if no signs of bleeding. Problems addressed as follows: Unstable angina Hypertensive urgency Multivessel CAD -Serial troponin ordered, remain less than 0.02 during admission. EKGs were obtained with no ST changes. CT of head obtained showing no intracranial abnormalities and no current stroke or bleed. Patient was started on heparin drip, aspirin, Plavix. Taken for left heart cath. Found to have multivessel disease which is not amenable to revascularization at this time. Cardiology recommends medical management with addition of isosorbide mononitrate 30 mg daily and Lasix 20 mg twice daily. Plan for close follow-up as an outpatient in 1 to 2 weeks where they will discuss continued medical management versus possible referral for CABG as an outpatient in the future pending patient's symptom improvement and medical management response. -We will continue metoprolol 50 mg daily, valsartan 80 g daily, isosorbide mononitrate 30 mg daily, Lasix 20 mg twice daily, Zetia 10 mg daily, Ettore 80 mg nightly, aspirin 80 g daily, apply 75 mg, and amlodipine 10 mg daily. -Effient discontinued due to contraindication in the setting of previous cerebral hemorrhage. Nausea and vomiting -Phenergan and Zofran ordered as needed q6hrs prn. Improved with resumption of buprenorphine. Continue pantoprazole daily as needed. History of hemorrhagic CVA Right renal artery aneurysm, new diagnosis -Occurred approximately 15 years ago, had vertigo then complete loss of consciousness status post craniotomy. Previous cerebral aneurysm was coiled. CT of head did not show any bleeding at this time. CT of abdome
--- NOTE | 2022-11-11 18:43 | PC.NURSE ---
Addendum entered by Jacquelin Ceballos RN 11/11/22 19:24: 1922 2 ml of air removed Addendum entered by Jacquelin Ceballos RN 11/11/22 19:01: 1850 2 ml of air removed 1903 2 ml of air removed Original Note: Radial band and air removal 1815 2 ml of air removed 1830 2 ml of air removed
--- NOTE | 2022-11-11 20:14 | PC.NURSE ---
Radial band off at 20:14
--- NOTE | 2022-11-12 13:18 | SW/DCPLANNER ---
I attempted to make a follow up phone w/ this patient regarding hospital discharge: no answer at this time.
== END 2022-11-11 20:51 | disposition home or self-care (01) ==
LOC: ER 13:50 → 2ND 14:19
PROVIDERS: Internal Medicine; Admitting Provider Internal Medicine Adolescent Medicine; Emergency Provider Emergency Medicine; PCP Emergency Medicine; Visit Provider Internal Medicine Adolescent Medicine
DX: I10 Essential (primary) hypertension; I25.110 Atherosclerotic heart disease of native coronary artery with unstable angina pectoris; Z86.73 Personal history of transient ischemic attack (TIA), and cerebral infarction without residual deficits; R11.2 Nausea with vomiting, unspecified; I72.2 Aneurysm of renal artery; I25.2 Old myocardial infarction; I16.0 Hypertensive urgency; F11.20 Opioid dependence, uncomplicated; E78.5 Hyperlipidemia, unspecified; Z79.01 Long term (current) use of anticoagulants; Z79.899 Other long term (current) drug therapy; Z95.5 Presence of coronary angioplasty implant and graft; I70.1 Atherosclerosis of renal artery; I77.1 Stricture of artery; I15.0 Renovascular hypertension
CPT/HCPCS: 36252; 36415; 70450; 71275; 74174; 80053; 80061; 83690; 83735; 84484; 85025; 85730; 93005; 93306; 93458; 99152; 99285; C1725; C1760; C1769; G0378; J0574; J1644; J2405; Q9967

== ENCOUNTER 2023-04-07 15:42 | Outpatient (CLI) | payer BC, SELFPAY ==
[2023-04-07 16:05] LABS: Basophils # 0.2 K/mm3 (0-0.2); Basophils % 1.5 % (0.1-2.0); Eosinophils # 0.3 K/mm3 (0.0-0.4); Eosinophils % 3.5 % (0.1-12.0); Hematocrit 43.5 % (42.0-52.0); Hemoglobin 14.2 g/dL (14.1-18.0); Mean Corpuscular HGB Conc 32.7 g/dL (31.8-35.4); Mean Corpuscular Hemoglobin 31.5 pg (27.0-31.2); Mean Corpuscular Volume 96.3 fl (80-94); Monocytes # 0.6 K/mm3 (0.1-1.0); Monocytes % 6.2 % (1.7-9.3); Neutrophils # 5.6 K/mm3 (1.8-7.8); Neutrophils % 57.9 % (37.0-80.0); Platelet Count 258 K/mm3 (142-424); Red Blood Count 4.52 M/mm3 (4.60-6.20); Red Cell Distribution Width 14.4 % (11.5-17.5); White Blood Count 9.7 K/mm3 (4.8-10.8)
[2023-04-07 16:12] LABS: Hemoglobin A1C 6.8 % (4.0-6.0)
[2023-04-07 16:57] LABS: Alanine Aminotransferase 34 U/L (12-78); Albumin Level 4.4 g/dl (3.5-5.0); Alkaline Phosphatase 98 U/L (38-126); Anion Gap 10.1 mEq/L (5-15); Aspartate Amino Transferase 34 U/L (17-59); Bilirubin,Direct 0.3 mg/dl (0.0-0.4); Bilirubin,Indirect 0.1 mg/dL (0.0-0.9); Bilirubin,Total 0.4 mg/dl (0.2-1.3); Bilirubin,Unconjugated 0.1 mg/dL (0.0-1.1); Blood Urea Nitrogen 13 mg/dl (9-20); Calcium 9.6 mg/dl (8.4-10.2); Carbon Dioxide 29 mmol/L (22.0-30.0); Chloride 106 mmol/L (98-107); Cholesterol 182 mg/dl (140-200); Estimated Glomerular Filt Rate 103 ml/min (>60); GFR (African American) 124 ML/MIN (>60); Glucose 104 mg/dl (74-100); HDL Cholesterol 26 mg/dl (40-60); Magnesium 1.9 mg/dl (1.6-2.3); Potassium 4.1 mmoL/L (3.5-5.1); Sodium 141 mmol/L (136-145); Total Protein,Serum 7.3 g/dl (6.3-8.2)
[2023-04-07 17:09] LABS: Direct LDL Cholesterol 76.41 mg/dL (100-129)
[2023-04-07 17:14] LABS: Free T4 (Free Thyroxine) 0.77 ng/dl (0.78-2.19)
[2023-04-07 17:18] LABS: Triglycerides 671 mg/dl (30-150)
[2023-04-07 17:28] LABS: Thyroid Stimulating Hormone 3.18 uIU/mL (0.465-4.68)
== END 2023-04-07 23:59 ==
LOC: LAB 15:44
PROVIDERS: PCP Emergency Medicine; Visit Provider Internal Medicine
DX: E78.5 Hyperlipidemia, unspecified (principal); I11.9 Hypertensive heart disease without heart failure; I25.10 Atherosclerotic heart disease of native coronary artery without angina pectoris; I72.2 Aneurysm of renal artery; R73.09 Other abnormal glucose; G47.33 Obstructive sleep apnea (adult) (pediatric); Z86.73 Personal history of transient ischemic attack (TIA), and cerebral infarction without residual deficits
CPT/HCPCS: 36415; 80048; 80061; 80076; 83036; 83735; 84439; 84443; 85025

== ENCOUNTER 2023-05-06 07:14 | Emergency (ER) | payer BC, SELFPAY ==
--- NOTE | 2023-05-06 07:11 | ECG_ITS ---
APPROVED REPORT Exam: Resting ECG HR:69 bpm ECG Measurements Heart Rate 69 AXES NH 164 P 69 QRSd 106 QRS 83 QT 386 T 63 QTc 405 Conclusion SINUS RHYTHM NORMAL ECG Electronically signed by : NATALIYA AYALA, 05/06/2023 23:23:11
[2023-05-06 07:17] VITALS: BP 164/95; PULSE 73; RESP 16; TEMP 36.4; O2SAT 96; BMI 39.1
--- NOTE | 2023-05-06 07:23 | XR_ITS ---
FINAL REPORT CLINICAL HISTORY: chest pain, soa COMPARISON: None FINDINGS: The heart size is normal. The mediastinum is normal. There is no focal infiltrate or edema. There are no pleural effusions. There is no pneumothorax. There is no osseous abnormality. IMPRESSION: No acute cardiopulmonary process Reviewed, Interpreted and Dictated by Saul Finley MD Transcribed by Alexandra Schuster Authenticated and [facility]
--- NOTE | 2023-05-06 07:25 | [facility].EDCP ---
Discharge Plan Disposition Patient Disposition: Home, Self-Care Condition: Good Prescriptions Prescriptions: No Action paroxetine HCl 20 mg tablet 20 mg PO DAILY Patient Comments: TAKE ONE TABLET BY MOUTH DAILY EVERY MORNING potassium citrate 99 mg capsule PO isosorbide mononitrate 60 mg tablet extended release 24 hr 60 mg PO DAILY 30 Days Qty: 30 3RF Patient Comments: Take 1 tablet by mouth Daily. metoprolol succinate 100 mg tablet extended release 24 hr 100 mg PO DAILY Qty: 30 2RF Ozempic 0.25 mg or 0.5 mg (2 mg/3 mL) pen injector 0.25 mg SQ WEEKLY Qty: 3 4RF Rx Instructions: for 4 weeks modafinil 200 mg tablet 200 mg PO DAILY Patient Comments: TAKE ONE TABLET BY MOUTH DAILY EVERY MORNING buprenorphine-naloxone 8-2 mg tablet, sublingual 2.5 tab SUBLINGUAL DAILY Patient Comments: take 2&1/2 tabs sublingually once daily atorvastatin 80 mg tablet 80 mg PO HS Patient Comments: TAKE ONE TABLET BY MOUTH AT BEDTIME valsartan 80 mg tablet 80 mg PO DAILY Patient Comments: TAKE ONE TABLET BY MOUTH DAILY clopidogrel 75 mg tablet 75 mg PO DAILY Patient Comments: Take 1 tablet by mouth Daily. Rx Instructions: Dr. Nuñez indicated patient takes Effient and Clopidogrel together. amlodipine 10 mg tablet 10 mg PO DAILY Patient Comments: TAKE ONE TABLET BY MOUTH DAILY pantoprazole 40 mg tablet,delayed release (DR/EC) 40 mg PO DAILY Patient Comments: TAKE ONE TABLET BY MOUTH DAILY nitroglycerin 0.4 mg tablet, sublingual 0.4 mg sublingual Q5MINP PRN (Reason: Chest Pain) Patient Comments: DISSOLVE 1 TABLET UNDER THE TONGUE EVERY 5 MINUTES NEEDED FOR CHEST PAIN. DO NOT EXCEED A TOTAL OF 3 DOSES IN 15 MINUTES. ezetimibe 10 mg tablet 10 mg PO DAILY Patient Comments: TAKE ONE TABLET BY MOUTH DAILY aspirin 81 mg Tablet,Delayed Release (Dr/Ec) 81 mg PO DAILY Qty: 0 0RF furosemide 20 mg Tablet 20 mg PO BIDL 30 Days Qty: 60 0RF Referrals Follow up/Referrals: Mary Nuñez [Primary Care Provider] - See instructions Activity Restrictions/Add. Instructions Additional Instructions/Restrictions: You were seen in the ED today due to chest pain. Labs, EKG and x-ray were reassuring. 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 Return to the ED if symptoms worsen or if new concerning symptoms arise. Thank you. Clinical Impressions Clinical Impression: Chest pain Qualifiers: Chest pain type: chest pain due to myocardial ischemia Ischemic chest pain type: unstable angina pectoris Qualified Code(s): I20.0 - Unstable angina Instructions Patient Instructions: DI for Chest Pain Discharge ED Provider: Ganesh Clinton General Chief Complaint: Chest Pain Stated Complaint: chest pain Time Seen by Provider: 05/06/23 07:15 History of Present Illness HPI narrative: Patient is a 48-year-old male with history of CAD s/p stents, HTN, HLD, prior CVA who presents due to chest pain and shortness of breath. Patient's is present to help provide history. Patient reports for the past 3 to 4 days he has had left-sided chest pain with radiation to his left arm and left neck. He has had associated shortness of breath. Patient states he woke up this morning and felt as though he could not breathe, prompting his visit today. Denies any orthopnea. Patient states current symptoms are similar to his past heart attacks but not as severe. States symptoms are worsened with exertion however he currently feels symptoms at rest as well. Denies any history of blood clots or blood thinner use. States he took 81 mg aspirin prior to arrival. Related Data Home Medications Medication Instructions Recorded Confirmed amlodipine 10 mg tablet 10 mg PO DAILY blood pressure 11/10/22 04/28/23 atorvastatin 80 mg tablet 80 mg PO HS Cholesterol 11/10/22 04/28/23 buprenorphine 8 mg-naloxone 2 mg 2.5 tab sublingual DAILY WITHDRAWAL 11/10/22 04/28/23 sublingual tablet clopidogrel 75 mg tablet 75 mg PO DAILY Blood Thinner 11/10/22 04/28/23 ezetimibe 10 mg tablet 10 mg PO DAILY Cholesterol 11/10/22 04/28/23 modafinil 200 mg tablet 200 mg PO DAILY Narcolepsy 11/10/22 04/28/23 nitroglycerin 0.4 mg sublingual 0.4 mg sublingual Q5MINP PRN Chest 11/10/22 04/28/23 tablet Pain pantoprazole 40 mg tablet,delayed 40 mg PO DAILY GERD 11/10/22 04/28/23 release valsartan 80 mg tablet 80 mg PO DAILY Blood pressure 11/10/22 04/28/23 paroxetine HCl 20 mg tablet 20 mg PO DAILY 04/07/23 04/28/23 potassium citrate 99 mg capsule mg PO 04/07/23 04/28/23 Previous Rx's Medication Instructions Recorded aspirin 81 mg tablet,delayed 81 mg PO DAILY #0 tabs 11/11/22 release furosemide 20 mg tablet 20 mg PO BIDL 30 days #60 tabs 11/11/22 isosorbide mononitrate 60 mg 60 mg PO DAILY blood pressure 30 04/07/23 tablet,extended release 24 hr days #30 tabs metoprolol succinate 100 mg 100 mg PO DAILY #30 tabs 04/07/23 tablet,extended release 24 hr semaglutide 0.25 mg or 0.5 mg (2 0.25 mg (0.368 mL) SQ WEEKLY #3 mL 04/28/23 mg/3 mL) subcutaneous pen injector (Ozempic) Allergies Allergy/AdvReac Type Severity Reaction Status Date / Time No Known Allergies Allergy Verified 05/06/23 07:31 [facility] Disclaimer: The information contained in this section may have been updated after the patient was seen, as this information can be updated by other users. Medical History (Updated 05/06/23 @ 10:05 by Ganesh Clinton MD) Elevated hemoglobin A1c DM2 (diabetes mellitus, type 2) Elevated glucose Memory loss Kidney stones NASREEN (obstructive sleep apnea) HLD (hyperlipidemia) HTN (hypertension) Narcolepsy Brain aneurysm Renal arterial aneurysm Stroke Hemorrhagic cerebrovascular accident (CVA) Surgical History H/O heart artery stent Hx of cardiac cath Social History Smoking Status: Current every day smoker alcohol intake: never current occupational status: employed Travel in the last 8 weeks: None ROS Obtained: Yes All systems reviewed & no additional complaints except as documented Constitutional Constitutional: Denies chills and Denies fever(s) Cardiovascular Cardiovascular: Reports chest pain, Reports chest pain with activity, Reports dyspnea on exertion and Reports radiating jaw, neck or arm pain Respiratory Respiratory: Reports shortness of breath and Reports dyspnea on exertion Gastrointestinal Gastrointestingal: Reports diarrhea and nausea; Denies abdominal pain or vomiting Physical Exam General General appearance: alert and in no apparent distress Head Head exam: atraumatic, normocephalic and normal inspection Eye Eye exam: Present normal appearance, PERRL and EOMI ENT ENT exam: Present normal exam, normal oropharynx, mucous membranes moist, TM's normal bilaterally and normal external ear exam Neck Neck exam: Present normal inspection, full ROM and trachea midline; Absent meningismus or lymphadenopathy Chest Chest inspection: Present normal inspection and symmetric chest wall rise; Absent tenderness Expanded Chest Exam Comment: No reproducible chest tenderness. Respiratory Respiratory exam: Present normal lung sounds bilaterally; Absent respiratory distress Cardiovascular Cardiovascular exam: Present regular rate and normal rhythm; Absent JVD Abdominal Exam Abdominal exam: Present soft and normal bowel sounds; Absent distention, tenderness or guarding Comment: No tenderness. Abdomen soft, nondistended. Extremities Exam Extremities exam: Present normal inspection, full ROM and normal capillary refill; Absent calf tenderness Back Exam Back exam: Present normal inspection; Absent tenderness Neurological Exam Neurological exam: Present alert and oriented X3 Psychiatric Psychiatric exam: Present normal affect and normal mood Skin Skin exam: Present warm, dry, intact and normal color Lymphatic Lymphatic Findings: no adenopathy HEART Score HEART Score HEART Score assessment performed?: Yes History (anamnesis): Highly suspicious ECG: Non-specific disturbance Age: 45-65 years Risk factors: 3 or more risk factors Troponin: </= normal limit HEART Score: 6 Critical Care Critical Care Time Critical Care Time: No Medical Decision Making Pablo Inquiry Pt receiving controlled substance: No Pablo was queried for this patient: No Vital Signs Vital Signs: 05/06/23 07:17 05/06/23 07:30 05/06/23 08:00 Temperature 97.6 F Temperature Source Oral Pulse Rate 69 60 Pulse Rate [Left] 73 Respiratory Rate 16 18 13 Blood Pressure 135/79 114/75 Blood Pressure [Right Arm] 164/95 H Blood Pressure Mean [Right Arm] 118 Blood Pressure Source [Right Arm] Automatic Cuff Blood Pressure Position [Right Arm] Sitting 02 Sat by Pulse Oximetry 96 95 96 Oxygen Delivery Method Room Air 05/06/23 08:30 05/06/23 09:00 Temperature Temperature Source Pulse Rate 60 70 Pulse Rate [Left] Respiratory Rate 13 13 Blood Pressure 116/76 120/72 Blood Pressure [Right Arm] Blood Pressure Mean [Right Arm] Blood Pressure Source [Right Arm] Blood Pressure Position [Right Arm] 02 Sat by Pulse Oximetry 94 L 93 L Oxygen Delivery Method Lab Data Labs: Lab Results 05/06/23 07:15: WBC 9.4, RBC 4.92, Hgb 15.2, Hct 47.9, MCV 97.4 H, MCH 31.0, MCHC 31.8, RDW 14.5, Plt Count 246, MPV 8.2, Neut % (Auto) 60.2, Lymph % (Auto) 30.5, [place] % (Auto) 4.6, Eos % (Auto) 3.6, Baso % (Auto) 1.2, Neut # (Auto) 5.7, Lymph # (Auto) 2.9, [place] # (Auto) 0.4, Eos # (Auto) 0.3, Baso # (Auto) 0.1, Sodium 141, Potassium 4.3, Chloride 105, Carbon Dioxide 29, Anion Gap 11.3, BUN 14, Creatinine 0.80, Estimated Creat Clear 219, Estimated GFR 103, Est GFR ( Amer) 124, Glucose 144 H, Calcium 9.6, Total Bilirubin 0.4, AST 37, ALT 39, Alkaline Phosphatase 91, Troponin I < 0.01, NT-Pro-B Natriuret Pep 62.1, Total Protein 7.7, Albumin 4.6, Globulin 3.1, Albumin/Globulin Ratio 1.5 05/06/23 09:05: Troponin I < 0.01 05/06/23 07:15 05/06/23 07:15 Response Orders (Tests/Meds): ED MEDICATIONS Generic Name Dose Route Start Last Admin Trade Name Freq PRN Reason Stop Dose Admin Nitroglycerin 0.4 mg 05/06/23 07:23 Nitroglycerin 0.4mg Sl Tablet SL 05/07/23 07:23 Q5MINP PRN Chest Pain Discontinued Medications Generic Name Dose Route Start Last Admin Trade Name Freq PRN Reason Stop Dose Admin Aspirin 162 mg 05/06/23 07:23 05/06/23 07:32 Aspirin 81mg Chewable Tablet PO 05/06/23 07:24 162 mg ONCE ONE Administration ORDERS Category Date Time Status XR chest portable Stat Exams 05/06/23 07:23 Completed Complete Blood Count Auto Diff Stat Lab 05/06/23 07:15 Completed Comprehensive Metabolic Panel Stat Lab 05/06/23 07:15 Completed NT Pro Brain Natriuretic Pep. Stat Lab 05/06/23 07:15 Completed Troponin I Q3H Lab 05/06/23 07:15 Completed Troponin I Q3H Lab 05/06/23 09:05 Completed Troponin I Q3H Lab 05/06/23 13:30 Ordered ECG Data Tracing #1: Attestation: I reviewed this ECG and interpreted as documented below: ECG Narrative: EKG obtained and read by me showing normal sinus rhythm with nonspecific ST segment changes, appropriate intervals, no obvious signs of acute ischemia. ECG initial impression date: 05/06/23 ECG initial impression time: 07:12 Tracing #2: Attestation: I reviewed this ECG and interpreted as documented below: ECG Narrative: EKG obtained and read by me showing normal sinus rhythm with nonspecific ST changes similar to prior, no obvious sign of acute ischemia. MDM Narrative Medical Decision Narrative: In summary, patient is a 48-year-old male with history of CAD, prior [place], HTN, HLD, prior CVA, evaluated in the emergency department today due to chest pain and shortness of breath. On arrival, patient is hypertensive but hemodynamically stable, otherwise normal vital signs. On examination, patient is resting comfortably, has no reproducible tenderness, no lower extremity swelling. Differential diagnosis includes but is not limited to ACS, cardiac arrhythmia, musculoskeletal pain, pneumonia, PE. Patient given 162 mg aspirin. Workup initiated including CBC, CMP, troponin, BNP, CXR. Labs independently interpreted by me and significant for negative troponin x2, normal BNP, labs otherwise unremarkable. Imaging independently interpreted by me and significant for CXR showing no pneumonia, otherwise no acute findings. On reevaluation, patient reports improvement in symptoms and continues to be resting comfortably. Workup is overall reassuring. Troponins are negative. Serial EKGs show only nonspecific ST changes which were present on prior EKGs. Well score for PE is 0, lower concern for PE. 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 Patient is agreeable. Patient given strict return precautions, discharged in stable condition. Additional history was provided by patient's . 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 I considered the utility of treatment with pain control agents, but decided against this because patient states pain is well-controlled. I considered admitting the patient to the hospital for observation, and in shared decision-making with patient, decided on close outpatient follow-up.
[2023-05-06 07:30] VITALS: BP 135/79; PULSE 69; RESP 18; O2SAT 95
[2023-05-06] MEDS: ASPIRIN 81MG CHEWABLE TABLET 162 MG PO (07:32)
[2023-05-06 07:37] LABS: Alanine Aminotransferase 39 U/L (12-78); Albumin Level 4.6 g/dl (3.5-5.0); Albumin/Globulin Ratio 1.5 (1.1-1.8); Alkaline Phosphatase 91 U/L (38-126); Anion Gap 11.3 mEq/L (5-15); Aspartate Amino Transferase 37 U/L (17-59); Bilirubin,Total 0.4 mg/dl (0.2-1.3); Blood Urea Nitrogen 14 mg/dl (9-20); Calcium 9.6 mg/dl (8.4-10.2); Carbon Dioxide 29 mmol/L (22.0-30.0); Chloride 105 mmol/L (98-107); Creatinine Clearance Estimated 219 mL/min (50-200); Estimated Glomerular Filt Rate 103 ml/min (>60); GFR (African American) 124 ML/MIN (>60); Globulin 3.1 g/dL (1.3-3.2); Glucose 144 mg/dl (74-100); Potassium 4.3 mmoL/L (3.5-5.1); Sodium 141 mmol/L (136-145); Total Protein,Serum 7.7 g/dl (6.3-8.2)
[2023-05-06 07:48] LABS: NT Pro Brain Natriuretic Pep. 62.1 pg/mL (0-125)
[2023-05-06 07:53] LABS: Troponin I < 0.01 ng/ml (0.00-0.034)
[2023-05-06 08:00] VITALS: BP 114/75; PULSE 60; RESP 13; O2SAT 96
--- NOTE | 2023-05-06 08:21 | PC.NURSE ---
rounded on patient, no needs voiced at this time.
--- NOTE | 2023-05-06 08:25 | PC.NURSE ---
I called lab to inquire about the results of the pts CBC, they state it will be five more minutes.
[2023-05-06 08:28] LABS: Basophils # 0.1 K/mm3 (0-0.2); Basophils % 1.2 % (0.1-2.0); Eosinophils # 0.3 K/mm3 (0.0-0.4); Eosinophils % 3.6 % (0.1-12.0); Hematocrit 47.9 % (42.0-52.0); Hemoglobin 15.2 g/dL (14.1-18.0); Lymphocytes # 2.9 K/mm3 (0.7-4.5); Lymphocytes % 30.5 % (10-50); Mean Corpuscular HGB Conc 31.8 g/dL (31.8-35.4); Mean Corpuscular Volume 97.4 fl (80-94); Mean Platelet Volume 8.2 fl (7.4-10.4); Monocytes # 0.4 K/mm3 (0.1-1.0); Monocytes % 4.6 % (1.7-9.3); Neutrophils # 5.7 K/mm3 (1.8-7.8); Neutrophils % 60.2 % (37.0-80.0); Platelet Count 246 K/mm3 (142-424); Red Blood Count 4.92 M/mm3 (4.60-6.20); Red Cell Distribution Width 14.5 % (11.5-17.5); White Blood Count 9.4 K/mm3 (4.8-10.8)
[2023-05-06 08:30] VITALS: BP 116/76; PULSE 60; RESP 13; O2SAT 94
[2023-05-06 09:00] VITALS: BP 120/72; PULSE 70; RESP 13; O2SAT 93
--- NOTE | 2023-05-06 09:29 | ECG_ITS ---
APPROVED REPORT Exam: Resting ECG HR:61 bpm ECG Measurements Heart Rate 61 AXES OR 157 P 73 QRSd 102 QRS 85 QT 404 T 79 QTc 407 Conclusion SINUS RHYTHM NORMAL ECG Electronically signed by : NATALIYA AYALA, 05/06/2023 23:23:21
[2023-05-06 09:35] LABS: Troponin I < 0.01 ng/ml (0.00-0.034)
[2023-05-06 10:16] VITALS: BP 120/62; PULSE 55; RESP 12; TEMP 36.6; O2SAT 97
== END 2023-05-06 10:17 | disposition home or self-care (01) ==
PROVIDERS: Emergency Provider Student in an Organized Health Care Education/Training Program; PCP Emergency Medicine
DX: R07.89 Other chest pain (principal); I20.0 Unstable angina; R06.02 Shortness of breath; I11.9 Hypertensive heart disease without heart failure; E78.5 Hyperlipidemia, unspecified; E11.9 Type 2 diabetes mellitus without complications; F17.210 Nicotine dependence, cigarettes, uncomplicated; Z95.5 Presence of coronary angioplasty implant and graft; Z79.85 Long-term (current) use of injectable non-insulin antidiabetic drugs
CPT/HCPCS: 71045; 80053; 83880; 84484; 85025; 93005; 99284

== ENCOUNTER 2024-10-01 12:39 | Observation (INO) | payer SELFPAY ==
[2024-10-01] VITALS (8 sets, daily range): BP systolic 110–144; BP diastolic 57–83; PULSE 60–90; RESP 12–19; TEMP 36.4–36.8; O2SAT 92–98; BMI 39.7; BMI 37.5
--- NOTE | 2024-10-01 12:38 | ECG_ITS ---
APPROVED REPORT Exam: Resting ECG HR:76 bpm ECG Measurements Heart Rate 76 AXES MI 159 P 63 QRSd 110 QRS 95 QT 370 T 83 QTc 401 Conclusion SINUS RHYTHM BORDERLINE RIGHT AXIS DEVIATION [QRS AXIS > 90] POSSIBLE ANTERIOR MYOCARDIAL INFARCTION , PROBABLY OLD [30 ms Q WAVE IN V3/V4, OR R < 0.2 mV IN V4] POSSIBLE INFERIOR MYOCARDIAL INFARCTION , PROBABLY OLD [30 ms Q WAVE IN II/aVF] BORDERLINE ECG UNCONFIRMED REPORT Electronically signed by : BAYRON STANFORD, 10/01/2024 23:10:17
--- NOTE | 2024-10-01 12:48 | CT_ITS ---
FINAL REPORT TECHNIQUE: Axial imaging of the chest is obtained after the administration of contrast. 3-D MIP reformatted images were also obtained and reviewed per PE protocol. CLINICAL HISTORY: SOB, chest pain COMPARISON: None FINDINGS: The pulmonary arteries are well filled. There is no evidence of pulmonary embolus. There is no aortic dissection. Heart size is normal. There is no axillary lymphadenopathy. Enlarged right paratracheal lymph node measures 24 mm. No hilar lymphadenopathy. A subcarinal lymph node measures 33 mm. The lungs are clear. There is no pleural or pericardial effusion. Limited evaluation of the upper abdomen demonstrates a nonobstructing left renal stone. No acute findings.. No acute osseous abnormality. IMPRESSION: No evidence of pulmonary embolism or aortic dissection. Reviewed, Interpreted and Dictated by Ro Mathis MD Transcribed by Alexandra Schuster Authenticated and [facility]
--- NOTE | 2024-10-01 12:48 | PC.NURSE ---
pt. stated they did not need anything at this time
--- NOTE | 2024-10-01 12:49 | [facility].EDGENADL ---
Discharge Plan Disposition Patient Disposition: Admitted Prescriptions Prescriptions: No Action paroxetine HCl 20 mg tablet 20 mg PO DAILY Patient Comments: TAKE ONE TABLET BY MOUTH DAILY EVERY MORNING potassium citrate 99 mg capsule 99 mg PO DAILY isosorbide mononitrate 60 mg tablet extended release 24 hr 60 mg PO DAILY 30 Days Qty: 30 3RF Patient Comments: Take 1 tablet by mouth Daily. Ozempic 0.25 mg or 0.5 mg (2 mg/3 mL) pen injector 0.25 mg SQ WEEKLY Qty: 3 4RF Rx Instructions: for 4 weeks modafinil 200 mg tablet 200 mg PO DAILY Patient Comments: TAKE ONE TABLET BY MOUTH DAILY EVERY MORNING buprenorphine-naloxone 8-2 mg tablet, sublingual 2.5 tab SUBLINGUAL DAILY Patient Comments: take 2&1/2 tabs sublingually once daily atorvastatin 80 mg tablet 80 mg PO HS Patient Comments: TAKE ONE TABLET BY MOUTH AT BEDTIME valsartan 80 mg tablet 160 mg PO DAILY Patient Comments: TAKE ONE TABLET BY MOUTH DAILY clopidogrel 75 mg tablet 75 mg PO DAILY Patient Comments: Take 1 tablet by mouth Daily. Rx Instructions: Dr. Nuñez indicated patient takes Effient and Clopidogrel together. amlodipine 10 mg tablet 5 mg PO DAILY Patient Comments: TAKE ONE TABLET BY MOUTH DAILY pantoprazole 40 mg tablet,delayed release (DR/EC) 40 mg PO DAILY Patient Comments: TAKE ONE TABLET BY MOUTH DAILY nitroglycerin 0.4 mg tablet, sublingual 0.4 mg sublingual Q5MINP PRN (Reason: Chest Pain) Patient Comments: DISSOLVE 1 TABLET UNDER THE TONGUE EVERY 5 MINUTES NEEDED FOR CHEST PAIN. DO NOT EXCEED A TOTAL OF 3 DOSES IN 15 MINUTES. ezetimibe 10 mg tablet 10 mg PO DAILY Patient Comments: TAKE ONE TABLET BY MOUTH DAILY aspirin 81 mg Tablet,Delayed Release (Dr/Ec) 81 mg PO DAILY Qty: 0 0RF furosemide 20 mg Tablet 20 mg PO BIDL 30 Days Qty: 60 0RF metoprolol succinate 100 mg tablet extended release 24 hr 50 mg PO DAILY metformin 500 mg Tablet 500 mg PO BID ondansetron 8 mg Tablet,Disintegrating 8 mg translingual NEEDED PRN (Reason: Nausea And Vomiting) modafinil 200 mg Tablet 200 mg PO DAILY dicyclomine 20 mg Tablet 20 mg PO TID albuterol sulfate 90 mcg/actuation Hfa Aerosol Inhaler 2 puff INHALATION Q6H PRN (Reason: Shortness Of Breath Or Wheezing) Clinical Impressions Clinical Impression: Unstable angina Print Language Print Language: Luxembourgish Discharge ED Provider: Timoteo Delgadillo Adult HPI General Chief complaint: Chest Pain Stated complaint: chest pain Time Seen by Provider: 10/01/24 12:47 Mode of Arrival: EMS Source of Information: Patient Description of Symptoms (Recalled from ER Triage Doc. by RN): patient arrived to the ED via EMS from his primary care provider for worsening chest pain that has been going on since . patient currently rates chest pain 4/10. patient received 2 doses of nitro, 1 dose of aspirin, and metoprolol. patient does endorse pain in his jaw adn across his chest. History of Present Illness HPI narrative: Kerwin Mendez is a 49y male with a past medical history of coronary artery disease status post coronary stents, hypertension, hyperlipidemia, obstructive sleep apnea, type 2 diabetes, CVA, brain aneurysm who presents to the emergency department for complaints of chest pain and hypertension. Patient was sent by his primary care doctor in [place], Dr. Miranda. Patient states that starting on of last week (4 days ago) he developed a tightness throughout his entire chest that is worsened with deep breathing and he feels like he cannot take a full deep breath. He states that the pain radiates to his left jaw and left shoulder. He states that the pain is worsened with exertion. He does note that over the last 2 weeks, he has felt more fatigued than normal. He was seen by his primary care doctor today who noted systolic blood pressures in the 190-200 range, which patient states is abnormal for him. He states that normally he is in the 150s systolic, however over the last 2 weeks has been running low in the 100/60 range. Patient states that he does take clopidogrel. He was given 25 of metoprolol by his primary care physician and blood pressure had improved to 132/79 on arrival. Patient had been given 2 rounds of sublingual nitroglycerin and patient states that his pain is currently a 3 out of 10 and has improved since taking the nitroglycerin. He was also given full dose aspirin by EMS. Related Data Home Medications ?Medication ?Instructions ?Recorded ?Confirmed amlodipine 10 mg tablet 5 mg PO DAILY blood pressure 11/10/22 10/01/24 atorvastatin 80 mg tablet 80 mg PO HS Cholesterol 11/10/22 10/01/24 buprenorphine 8 mg-naloxone 2 mg 2.5 tab sublingual DAILY WITHDRAWAL 11/10/22 10/01/24 sublingual tablet clopidogrel 75 mg tablet 75 mg PO DAILY Blood Thinner 11/10/22 10/01/24 ezetimibe 10 mg tablet 10 mg PO DAILY Cholesterol 11/10/22 10/01/24 modafinil 200 mg tablet 200 mg PO DAILY Narcolepsy 11/10/22 10/01/24 nitroglycerin 0.4 mg sublingual 0.4 mg sublingual Q5MINP PRN Chest 11/10/22 10/01/24 tablet Pain pantoprazole 40 mg tablet,delayed 40 mg PO DAILY GERD 11/10/22 10/01/24 release valsartan 80 mg tablet 160 mg PO DAILY Blood pressure 11/10/22 10/01/24 paroxetine HCl 20 mg tablet 20 mg PO DAILY 04/07/23 10/01/24 potassium citrate 99 mg capsule 99 mg PO DAILY 04/07/23 10/01/24 albuterol sulfate 90 mcg/actuation 2 puff inhalation Q6H PRN 10/01/24 10/01/24 aerosol inhaler Shortness Of Breath Or Wheezing dicyclomine 20 mg tablet 20 mg PO TID 10/01/24 10/01/24 metformin 500 mg tablet 500 mg PO BID 10/01/24 10/01/24 metoprolol succinate 100 mg 50 mg PO DAILY 10/01/24 10/01/24 tablet,extended release 24 hr modafinil 200 mg tablet 200 mg PO DAILY 10/01/24 10/01/24 ondansetron 8 mg disintegrating 8 mg translingual NEEDED PRN 10/01/24 10/01/24 tablet Nausea And Vomiting Previous Rx's ?Medication ?Instructions ?Recorded aspirin 81 mg tablet,delayed 81 mg PO DAILY #0 tabs 11/11/22 release furosemide 20 mg tablet 20 mg PO BIDL 30 days #60 tabs 11/11/22 isosorbide mononitrate 60 mg 60 mg PO DAILY blood pressure 30 04/07/23 tablet,extended release 24 hr days #30 tabs semaglutide 0.25 mg or 0.5 mg (2 0.25 mg (0.368 mL) SQ WEEKLY #3 mL 04/28/23 mg/3 mL) subcutaneous pen injector (Ozempic) Allergies Allergy/AdvReac Type Severity Reaction Status Date / Time No Known Allergies Allergy Verified 05/06/23 07:31 [facility] Disclaimer: The information contained in this section may have been updated after the patient was seen, as this information can be updated by other users. Medical History (Updated 10/01/24 @ 14:35 by Timoteo Delgadillo MD) Elevated hemoglobin A1c DM2 (diabetes mellitus, type 2) Elevated glucose Memory loss Kidney stones NASREEN (obstructive sleep apnea) HLD (hyperlipidemia) HTN (hypertension) Narcolepsy Brain aneurysm Renal arterial aneurysm Stroke Hemorrhagic cerebrovascular accident (CVA) Surgical History H/O heart artery stent Hx of cardiac cath Social History Smoking Status: Current every day smoker alcohol intake: never current occupational status: employed Travel in the last 8 weeks?: None Have you lived/traveled outside [place] in past 30 days?: No Contact w/someone who lives/traveled outside US past 30 days?: No Exposure to someone with infectious disease in past 14 days?: No Do you have a fever (greater than 100.4 F or 38 C)?: No Have you tested positive for COVID-19?: No Exposed to someone with COVID-19 in past 14 days?: No Do you have a sore throat?: No Do you have a cough?: No Do you have any weakness?: No Do you have any diarrhea?: No Are you experiencing any unusual bleeding?: No Do you have any muscle aches/pain?: No Do you have any abdominal pain?: No Are you experiencing loss of taste or smell?: No Other Medical History Have you received the Flu Vaccine for this season: No Have you received the Pneumonia Vaccine: No ROS Obtained: Yes Systems reviewed as appropriate & no additional complaints except as documented Physical Exam General General appearance: alert, in no apparent distress and obese Head Head exam: atraumatic Eye Eye exam: Present normal appearance ENT ENT exam: Present normal external ear exam Neck Neck exam: Present full ROM Chest Chest inspection: Present symmetric chest wall rise Respiratory Respiratory exam: Present normal lung sounds bilaterally; Absent respiratory distress Cardiovascular Cardiovascular exam: Present regular rate and normal rhythm Abdominal Exam Abdominal exam: Present soft; Absent tenderness or guarding exam: Present deferred Extremities Exam Extremities exam: Present normal inspection Back Exam Back exam: Present normal inspection Neurological Exam Neurological exam: Present alert and oriented X3 Psychiatric Psychiatric exam: Present normal affect Skin Skin exam: Present warm and dry Medical Decision Making Medical Records Screening: Per USPSTF and CDC recommendations, given the prevalence of disease in our region, it is our hospital?s policy to screen for HIV and viral Hepatitis for all patients aged 18 and over and those with ongoing risk factors. Pablo Inquiry Pt receiving controlled substance: No Vital Signs: 10/01/24 12:42 10/01/24 12:44 10/01/24 12:52 Temperature 97.5 F L Temperature Source Oral Pulse Rate 90 86 Pulse Rate [Right Radial] 86 Respiratory Rate 15 16 Blood Pressure 132/79 Blood Pressure [Right Arm] 132/79 Blood Pressure Mean [Right Arm] 96 Blood Pressure Source [Right Arm] Automatic Cuff Blood Pressure Position [Right Arm] Sitting 02 Sat by Pulse Oximetry 95 92 L Oxygen Delivery Method Nasal Cannula Oxygen Flow Rate (LPM) 2 10/01/24 13:00 10/01/24 14:15 Temperature Temperature Source Pulse Rate 77 71 Pulse Rate [Right Radial] Respiratory Rate 12 Blood Pressure 110/57 L Blood Pressure [Right Arm] Blood Pressure Mean [Right Arm] Blood Pressure Source [Right Arm] Blood Pressure Position [Right Arm] 02 Sat by Pulse Oximetry 96 98 Oxygen Delivery Method Room Air Oxygen Flow Rate (LPM) Lab Data Lab Results 10/01/24 12:44: WBC 11.4 H, RBC 4.70, Hgb 14.4, Hct 42.1, MCV 89.6, MCH 30.6, MCHC 34.2, RDW 13.1, Plt Count 233, MPV 9.8, Neut % (Auto) 73.6, Lymph % (Auto) 19.1, Banks % (Auto) 4.8, Eos % (Auto) 1.3, Baso % (Auto) 0.7, Neut # (Auto) 8.4 H, Lymph # (Auto) 2.2, Banks # (Auto) 0.6, Eos # (Auto) 0.2, Baso # (Auto) 0.1, Sodium 140, Potassium 4.4, Chloride 105, Carbon Dioxide 26, Anion Gap 13.4, BUN 9, Creatinine 0.60 L, Estimated Creat Clear 277, Estimated GFR 143, Est GFR ( Amer) 173, Glucose 108 H, Calcium 8.8, Total Bilirubin 0.5, AST 30, ALT 27, Alkaline Phosphatase 90, Troponin I 0.01, C-Reactive Protein 2.8, NT-Pro-B Natriuret Pep 230 H, Total Protein 6.9, Albumin 4.1, Globulin 2.8, Albumin/Globulin Ratio 1.5 10/01/24 12:51: SARS-CoV-2 (PCR) Not detected, Influenza A Untype (PCR) Not detected, Influenza Type B (PCR) Not detected 10/01/24 12:44 10/01/24 12:44 Orders (Tests/Meds): ED MEDICATIONS Generic Name Dose Route Start Last Admin Trade Name Freq PRN Reason Stop Dose Admin Sodium Chloride 10 ml 10/01/24 13:10 10/01/24 13:11 Sodium Chloride 0.9% 10ml Syr (Rad Only) IV 10/31/24 13:09 10 ml NEEDED PRN Administration Maintain IV Site Discontinued Medications Generic Name Dose Route Start Last Admin Trade Name Freq PRN Reason Stop Dose Admin Iopamidol 70 ml 10/01/24 13:10 10/01/24 13:11 Iopamidol-370 (76%);100ml Bottle IV 10/01/24 13:11 70 ml ONCE ONE Administration Morphine Sulfate 2 mg 10/01/24 12:48 10/01/24 12:56 Morphine 2mg/Ml Syringe IV 10/01/24 12:49 2 mg ONCE ONE Administration Sodium Chloride 50 ml 10/01/24 13:10 10/01/24 13:11 0.9 % Sodium Chloride 50 Ml Vial IV 10/01/24 13:11 50 ml ONCE ONE Administration ORDERS Category Date Time Status CT angio chest PE protocol Stat Cat Scan 10/01/24 12:48 Completed BNP [NT Pro Brain Natriuretic Pep.] Stat Lab 10/01/24 12:44 Completed CBC w/Auto Diff [Complete Blood Count Auto Diff] Stat Lab 10/01/24 12:44 Completed CMP [Comprehensive Metabolic Panel] Stat Lab 10/01/24 12:44 Completed CRP [C-Reactive Protein] Stat Lab 10/01/24 12:44 Completed Rapid PCR Covid and Flu A/B Stat Lab 08/25/25 12:51 Completed Troponin I Q3H Lab 10/01/24 16:00 Ordered Troponin I Q3H Lab 10/01/24 19:00 Ordered Troponin I Stat Lab 10/01/24 12:44 Completed ECG Data Tracing #1: I reviewed this ECG and interpreted as documented below: Normal sinus rhythm. No ST elevation or depression. T wave inversions with downsloping QRS in aVL. QTc of 401. HEART Score History (anamnesis): Highly suspicious ECG: Normal Age: 45-65 years Risk factors: Atherosclerosis history Troponin: </= normal limit HEART Score: 5 Medical Decision Narrative: Kerwin Mendez is a 49y male with a past medical history of coronary artery disease status post coronary stents, hypertension, hyperlipidemia, obstructive sleep apnea, type 2 diabetes, CVA, brain aneurysm who presents to the emergency department for complaints of chest pain and hypertension. Patient was sent by his primary care doctor in [place], Dr. Miranda. Patient states that starting on of last week (4 days ago) he developed a tightness throughout his entire chest that is worsened with deep breathing and he feels like he cannot take a full deep breath. He states that the pain radiates to his left jaw and left shoulder. He states that the pain is worsened with exertion. He does note that over the last 2 weeks, he has felt more fatigued than normal. He was seen by his primary care doctor today who noted systolic blood pressures in the 190-200 range, which patient states is abnormal for him. He states that normally he is in the 150s systolic, however over the last 2 weeks has been running low in the 100/60 range. Patient states that he does take clopidogrel. He was given 25 of metoprolol by his primary care physician and blood pressure had improved to 132/79 on arrival. Patient had been given 2 rounds of sublingual nitroglycerin and a full dose aspirin via EMS and patient states that his pain is currently a 3 out of 10 and has improved since taking the nitroglycerin. Patient denies any history of blood clots. On arrival, patient blood pressure is 132/79, heart rate within normal limits, temperature 97.5 ?F, patient was borderline hypoxic at the time my evaluation at 92 to 93% on 2 L nasal cannula. He states that he does not normally wear oxygen. Physical exam, stated above, revealed an uncomfortable but nontoxic appearing male. No murmurs, gallops or rubs. No wheezing, rales or rhonchi. No peripheral edema. Differential diagnosis includes, but is not limited to: ACS, pulmonary embolism, pericarditis, myocarditis, viral respiratory illness, pneumonia, pleurisy, costochondritis, among others. The most morbid conditions were considered and workup was based on these. Workup in the emergency department included: EKG, CTA pulmonary embolism, CMP, CBC with differential, troponin, BNP. Patient was treated with 2 mg of IV morphine. EKG without STEMI. See interpretation above. Cardiology note from 04/28/2023 showed: [facility]:IMPRESSION (11/10/2022) Severe disease in a nondominant ostial circumflex artery as described above Chronically occluded dominant right coronary artery which fills via [id number] collaterals Normal ejection fraction Elevated LVEDP Nonflow limiting renal artery stenosis PLAN 1. At this point I recommend medical management. Maximize antianginal medications. Should recalcitrant angina continue I would consider bringing patient back to stent the ostial circumflex artery. 2. LDL less than 55 to be achieved with high intensity statin 3. Recommend renal duplex 4. Continue risk factor modification ECHO: Conclusion Normal biventricular systolic function. Mild hypokinesis of the anterior, anteroseptal, and anterolateral LV spangler. Aortic valve is mildly thickened, cannot rule out bicuspid aortic valve. No significant valvular stenosis or regurgitation. Per documentation from Dr. Miranda, patient has not taken his nitroglycerin. notes that has been having some lower blood pressure so they stopped his metoprolol without asking and they do not remember what his blood pressure were after they stopped taking the metoprolol, which was stopped 1 to 2 weeks ago. Patient smokes marijuana 3-4 joints a day and smoked this morning. He has been using his CPAP more often. Reportedly he has been taking his friend's Ozempic. Workup shows mild leukocytosis of 11.4 without left shift. CMP unremarkable nonactionable without ZEESHAN. Initial troponin 0.01. CRP normal at 2.8. Liver enzymes within normal limits. COVID/flu testing negative. NT proBNP mildly elevated at 230 and was normal at 62 on 05/06/2023. CT imaging was interpreted by me prior to official radiology read. No evidence of pulmonary embolism. No aortic dissection. No groundglass opacities to suggest pneumonia. See final radiology report for details. Patient's heart score is 5. On reassessment, patient states that his symptoms are improving after nitro and morphine, however he still feels some slight tightness in his chest. He was weaned off of oxygen at this time. Will discuss patient's case with Dr. Gracia with cardiology due to concern for unstable angina. After talking with Dr. Gracia, he recommends admission for further management. I then discussed patient's case with Dr. Islas who accepted the patient for admission. I discussed admission with the patient who accepted tohe patient for admission and further management. Critical Care Critical Care Time Critical Care Time: No
--- OUTSIDE RECORDS SUMMARY | 2024-10-01 12:52 | XMS_ITS | Clinical Summary ---
[facility] Organization [facility] Address [address] [place] [address] Care Team Providers Care Halftone Operator Name Role Phone Mary Nuñez MD Primary Care Provider [phone] Allergies No known active allergies Medications SUBOXONE 8-[address] 2.5 films under the tongue Daily. 8mg films 1 film in the morning 0.5-1 at lunch time Whats leftover for the day 6p-8p 6 Active modafinil (PROVIGIL) 200 MG tablet Take 200 mg by mouth Every Morning. Active nitroglycerin (NITROSTAT) 0.4 MG SL tabletIndication s:ST elevation myocardial infarction involving left anterior descending (LAD) coronary artery Place 1 tablet under the tongue as needed for chest pain, may repeat every 5mins for up three doses 25 tablet 11 03/05/2021 1:26 PM EST 2 Active Additional Information Patient taking differently: Place 1 tablet under the tongue as needed for chest pain, may repeat every 5mins for up three doses, Reported on 06/16/2021 clopidogrel (PLAVIX) 75 MG tabletIndication s:Coronary artery disease involving [place] coronary artery of [place] heart without angina pectoris Take 1 tablet by mouth Daily. 90 tablet 3 2 Active atorvastatin (LIPITOR) 80 MG tablet Take 80 mg by mouth Every Night. Active ezetimibe (ZETIA) 10 MG tablet Take 10 mg by mouth Daily. Take 10mg by mouth daily Active metoprolol succinate XL (TOPROL-XL) 25 MG 24 hr tablet Take 1 tablet by mouth Daily. 30 tablet 11 06/16/2021 1:38 PM EDT 2 Active Additional Information Patient taking differently: 50 mgOral Every 24 Hours Scheduled, Reported on 04/12/2022 valsartan (DIOVAN) 80 MG tabletIndication s:Acute systolic congestive heart failure Take 1 tablet by mouth Daily. 90 tablet 3 06/16/2021 1:38 PM EDT 2 Active amLODIPine (NORVASC) 10 MG tablet Take 1 tablet by mouth Daily. 30 tablet 6 06/16/2021 1:38 PM EDT 2 Active pantoprazole (PROTONIX) 40 MG EC tablet Take 1 tablet by mouth Daily. 90 tablet 1 3 Active aspirin 81 MG EC tabletIndication s:ST elevation myocardial infarction involving left anterior descending (LAD) coronary artery TAKE ONE TABLET BY MOUTH DAILY 90 tablet 3 3 Active isosorbide mononitrate (IMDUR) 30 MG 24 hr tablet Take 1 tablet by mouth Daily. 30 tablet 11 3 Active Active Problems Problem Noted Date Diagnosed Date Unstable angina 06/15/2021 GERD without esophagitis 06/15/2021 Coronary artery disease invo lving [place] coronary artery of [place] heart without angina pectoris 03/04/2021 Overview (04/17/2021): Cardiac catheterization for anterior STEMI (03/04/2021): Severe 3-vessel CAD (LAD thrombotic occlusion, LCx, RCA SEASONING SPRAYER). The LAD was the primary culprit for the patient's STEMI and status post overlapping Xience LONNY from ostium to mid segment. Mid circumflex treated with Xience 4 x 38 mm LONNY. Severely elevated LV filling pressure (LVEDP 40 mmHg) Assessment & Plan (04/14/2021 9:20 AM EST): No signs or symptoms of angina Continue aspirin 81 mg daily Continue Effient 10 mg daily Continue metoprolol succinate 50 mg daily Hyperlipidemia LDL goal <70 03/04/2021 Overview (03/04/2021): High intensity statin therapy indicated given the presence of CAD Assessment & Plan (04/14/2021 9:21 AM EST): Continue Crestor 20 mg daily Current smoker 03/04/2021 Assessment & Plan (04/14/2021 11:29 AM EST): Patient reports decreasing from 2 packs/day to 1/2 pack/day Recommend immediate smoking cessation. Patient was counseled regarding the association between continued tobacco abuse and heart disease Essential hypertension 03/04/2021 Overview (04/15/2021): Target blood pressure <130/80 mmHg Assessment & Plan (04/14/2021 9:20 AM EST): Hypertension is controlled Continue metoprolol succinate 50 mg daily Continue spironolactone 25 mg daily Continue valsartan 80 mg. Chronic systolic congestive heart failure 2021 Overview (04/17/2021): Cardiac catheterization for anterior STEMI (03/04/2019): Severe 3-vessel CAD (LAD thrombotic occlusion, LCx, RCA SEASONING SPRAYER). The LAD was the primary culprit for the patient's STEMI and status post overlapping Xience LONNY from ostium to mid segment. Mid circumflex treated with Xience 4 x 38 mm LONNY. Severely elevated LV filling pressure (LVEDP 40 mmHg) Echo (03/04/2021): LVEF 38%. Mid anterior and apical hypokinesis. Normal valves. Assessment & Plan (04/14/2021 9:21 AM EST): Stable NYHA class II symptoms Continue metoprolol succinate 50 mg daily Continue spironolactone 25 mg daily Continue valsartan 80 mg Anxiety and depression 09/30/2015 PTSD (post-traumatic stress disorder) 09/30/2015 Kidney stones 09/30/2015 Chronic pain syndrome 09/30/2015 Resolved Problems Problem Noted Date Diagnosed Date Resolved Date ST elevation myocardial infarction (STEMI) 03/04/2021 03/04/2021 Thoracic facet arthropathy/t horacic spondylosis without myelopathy 09/30/2015 Costovertebral angle pain 09/30/2015 History of substance abuse 09/30/2015 0 03/04/2021 Dependence on nicotine from cigarettes 09/30/2015 03/04/2021 History of traumatic injury to musculoskeletal system 09/30/2015 03/04/2021 Family History Medical History Relation Name Comments Heart failure Father Aneurysm Mother Relation Name Status Comments Father Mother Social History Tobacco Use Types Packs/Day Years Used Date Smoking Tobacco: Every Day Cigarettes 0.3 25 Smokeless Tobacco: Never Tobacco Cessation:Ready to Q uit: Not Asked; Counseling Given: Not Answered Alcohol Use Standard Drinks/Week Comments Yes 6 (1 standard drink = 0.6 oz pur e alcohol) ~ 6 beers/week AUDIT-C Answer Date Recorded Q1: How often do you have a drink containing alcohol? Never 06/15/2021 Q2: How many drinks containi ng alcohol do you have on a typical day when you are drinking? Patient does not drink Q3: How often do you have si x or more drinks on one occasion? Never 06/15/2021 Abuse Screen Answer Date Recorded Unsafe at Home or Work/School Not on file Feels Threatened by Someone? Not on file Does Anyone Keep You from Co ntacting Others or Doint Things Outside the Home? Not on file 04/24/2023 Physical Sign of Abuse Present Not on file 0 04/24/2023 Housing Stability Answer Date Recorded Current Living Arrangements Not on file 11/07 Potentially Unsafe Housing Conditions Not on mena e 11/17/2022 Family and Community Support Answer Kaden e Recorded Help with Day-to-Day Activities Not on file 11/17/2022 Lonely or Isolated Not on file 11/17/2022 Employment Answer Date Recorded Do you want help finding or keeping work or a shirley b? Not on file 11/17/2022 Disabilities Answer Date Recorded Concentrating, Remembering, or Making Decisions Difficulty Not on file 11/17/2022 Doing Errands Independently Difficulty Not on fi le 11/17/2022 Education Answer Date Recorded Help with school or training? Not on file Preferred Language Not on file 11/17/2022 Sex and Gender Information Value Date Recorded Sex Assigned at Not on file Legal Sex Male 11:45 AM EDT Gender Identity Not on file Sexual Orientation Not on file Last Filed Vital Signs Vital Sign Reading Time Taken Comments Blood Pressure 107/64 04/12/2022 1:00 PM EST Pulse 69 04/12/2022 1:00 PM EST Temperature 36.8 C (98.2 F) 04/12/2022 9:48 AM EST Respiratory Rate 20 04/12/2022 9:48 AM EST Oxygen Saturation 96% 04/12/2022 1:01 PM EST Inhaled Oxygen Concentration - - Weight 125 kg (275 lb) 04/12/2022 9:48 AM EST Height 188 cm (6' 2 ) 04/12/2022 9:48 AM EST Body Mass Index 35.31 04/12/2022 9:48 AM EST Plan of Treatment Health Maintenance Due Date Last Done Comments TDAP/TD VACCINES (2 - Tdap) 04/12/2006 04/12/1996 ANNUAL PHYSICAL 05/16/2016 HEPATITIS C SCREENING 05/16/2016 COLOGUARD 2019 COLON CANCER SCREENING 5 YEA R SIGMOIDOSCOPY 2019 COLONOSCOPY 2019 [address]AL CANCER SCREENING 2019 CT COLONOGRAPHY 2019 FECAL OCCULT BLOOD TEST 2019 FIT Testing (1 year) 2019 LIPID PANEL 06/16/2022 06/16/2021, 03/0 09/2021, 03/04/2021 COVID-19 Vaccine (1 - season) 2023 Pneumococcal Vaccine 50+ (1 of 1 - PCV) 2024 ZOSTER VACCINE (1 of 2) 2024 INFLUENZA VACCINE 11/07/2024 Medical Devices Implanted Type Area Appliance Servicer Device Identifier Shelf Expiration Date Model / Serial / Lot Stnt [employer] Rx Xience/Skypoint Rapdxng [id number] - [id number] Implanted:Qty: 1 on 03/03/2021 by Mateo De León IV, MD at [facility] [employer] [id number] / / [id number] Stnt [employer] Rx Xience/Skypoint Rapdxng 3.5x28mm - [id number] Implanted:Qty: 1 on 03/03/2021 by Mateo De León IV, MD at [facility] [employer] [id number] / / [id number] Stnt [employer] Rx Xience/Skypoint Rapdxng 4x23mm - [id number] Implanted:Qty: 1 on 03/03/2021 by Mateo De León IV, MD at [facility] [employer] [id number] / / [id number] Stnt [employer] Rx Xience/Skypoint Rapdxng 4x38mm - [id number] Implanted:Qty: 1 on 03/03/2021 by Mateo De León IV, MD at [facility] [employer] [id number] / / [id number] Procedures Procedure Name Priority Date/Time Associated Diagnosis Comments LIPID PANEL Routine 06/16/2021 5:30 AM EDT from Last 3 Months or Most Recently Relevant to Health Maintenance Results * (ABNORMAL) Lipid Panel (06/16/2021 5:30 AM EDT) Total Cholesterol 119 0 - 200 mg/dL 06/16/2021 8:46 AM EDT [facility] Triglycerides 203(H) 0 - 150 mg/dL 06/16/2021 8:46 AM EDT [facility] HDL Cholesterol 25(L) 40 - 60 mg/dL 06/16/2021 8:46 AM EDT [facility] LDL Cholesterol 60 0 - 100 mg/dL 06/16/2021 8:46 AM EDT [facility] VLDL Cholesterol 34 5 - 40 mg/dL 06/16/2021 8:46 AM EDT [facility] LDL/HDL Ratio 2.14 06/16/2021 8:46 AM EDT [facility] Blood Venipuncture / Unknown 06/16/2021 5:30 AM EDT 06/16/2021 7:41 AM EDT Narrative [facility] - 06/16/2021 8:46 AM EDT Cholesterol Reference Ranges (U.S. Department of Health and Human Services ATP III Classifications) Desirable <200 mg/dL Borderline High 200-239 mg/dL High Risk >240 mg/dL Triglyceride Reference Ranges (U.S. Department of Health and Human Services ATP III Classifications) Normal <150 mg/dL Borderline High 150-199 mg/dL High 200-499 mg/dL Very High >500 mg/dL HDL Reference Ranges (U.S. Department of Health and Human Services ATP III Classifications) Low <40 mg/dl (major risk factor for CHD) High >60 mg/dl ('negative' risk factor for CHD) LDL Reference Ranges (U.S. Department of Health and Human Services ATP III Classifications) Optimal <100 mg/dL Near Optimal 100-129 mg/dL Borderline High 130-159 mg/dL High 160-189 mg/dL Very High >189 mg/dL Shweta Elizalde APRN LAB BLOOD ORDERABLES Final Re sult [facility]
[address] [place] [address], from Last 3 Months or Most Recently Relevant to Health Maintenance Insurance Advance Directives * CPR (Attempt to Resuscitate) (Latest Code Status on File) Date Activated Date Inactivated Comments 06/15/2021 7:49 PM 06/16/2021 3:43 PM Question Answer Comments Code Status (Patient has no pulse and is not breathing): CPR (Attempt to Resuscitate) Medical Interventions (Patie nt has pulse or is breathing): Full Support * CPR (Attempt to Resuscitate) Date Activated Date Inactivated Comments 03/04/2021 12:29 AM 03/05/2021 3:41 PM Question Answer Comments Code Status (Patient has no pulse and is not breathing): CPR (Attempt to Resuscitate) Medical Interventions (Patie nt has pulse or is breathing): Full Support Care Teams Halftone Operator Relationship Specialty Start Date End Date Mary Nuñez MD [address] [facility] [address] [place] [address] PCP - General Emergency Medicine 06/18/21
--- OUTSIDE RECORDS SUMMARY | 2024-10-01 12:52 | XMS_ITS | Clinical Summary ---
Author Organization [facility] Address [address] [place] [address] Care Team Providers Care Tile Helper Name Role Phone Jere Mixon MD Primary Care Provider [phone] Allergies No known active allergies Social History Tobacco Use Types Packs/Day Years Used Date Smoking Tobacco: Never Assessed Sex and Gender Information Value Date Recorded Sex Assigned at Not on file Legal Sex Male 8:19 PM EDT Gender Identity Not on file Sexual Orientation Not on file Last Filed Vital Signs Vital Sign Reading Time Taken Comments Blood Pressure 113/71 11/26/2020 10:56 AM EDT Pulse 82 11/26/2020 10:56 AM EDT Temperature 36.8 C (98.2 F) 11/26/2020 8:59 AM EDT Respiratory Rate 18 11/26/2020 10:56 AM EDT Oxygen Saturation 99% 11/26/2020 10:56 AM EDT Inhaled Oxygen Concentration - - Weight 113 kg (250 lb) 11/26/2020 7:47 AM EDT Height 188 cm (6' 2 ) 11/26/2020 7:47 AM EDT Body Mass Index 32.1 11/26/2020 7:47 AM EDT Plan of Treatment Health Maintenance Due Date Last Done Comments [facility]-Depression Screening 1974 [facility]-Infant/Child/Adol SDOH Screenings 1974 [facility]- SDOH Screenings 1992 [facility]-Adult SDOH Screenings 1992 [facility]-Hepatitis B Vaccines (1 of 3 - 19+ 3-dose series) 1993 [facility]-DTaP,Tdap,and Td Vaccine s (1 - Tdap) 04/13/1996 04/12/1996 CT Colonography 2019 Colonoscopy 2019 FIT-DNA 2019 FIT 2019 FOBT 2019 Sigmoidoscopy 2019 [facility]-Colorectal Cancer Screening 2019 [id number]-61 Vaccine (2 - 20 24-25 season) 2023 10/27/2020 [facility]-Pneumococcal Vaccine: 50 + Years (1 of 1 - PCV) 2024 [facility]-Zoster Vaccines (1 of 2) 2024 [facility]-Influenza Vaccine (#1) 2024 HPV Vaccines Aged Out No longer eligi ble based on patient's age to complete this topic [facility]-HIB Vaccines Aged Out No longer e ligible based on patient's age to complete this topic [facility]-Hepatitis A Vaccines Aged Out No longer eligible based on patient's age to complete this topic [facility]-IPV Vaccines Aged Out No longer e ligible based on patient's age to complete this topic [facility]-Rotavirus Vaccines Aged Out No lo nger eligible based on patient's age to complete this topic Insurance Care Teams Tile Helper Relationship Specialty Start Date End Date Jere Mixon MD [address] [place] [address] PCP - General 06/20/20
[2024-10-01 12:55] LABS: Coronavirus 19, PCR Not Detected (NotDetected); Influenza A, PCR Not Detected (NotDetected); Influenza B, PCR Not Detected (NotDetected)
[2024-10-01 12:55] LABS: Hematocrit 42.1 % (42.0-52.0); Hemoglobin 14.4 g/dL (14.1-18.0); Immature Granulocytes % 0.5 %; Mean Corpuscular HGB Conc 34.2 g/dL (31.8-35.4); Mean Corpuscular Hemoglobin 30.6 pg (27.0-31.2); Mean Corpuscular Volume 89.6 fl (80-94); Nucleated Red Blood Cells % 0 %; Platelet Count 233 K/mm3 (142-424); Red Blood Count 4.70 M/mm3 (4.60-6.20); Red Cell Distribution Width-SD 42.9 fL; White Blood Count 11.4 K/mm3 (4.8-10.8)
[2024-10-01] MEDS: MORPHINE 2MG/ML SYRINGE 2 MG IV (12:56)
[2024-10-01 13:00] LABS: Alanine Aminotransferase 27 U/L (12-78); Albumin Level 4.1 g/dl (3.5-5.0); Anion Gap 13.4 mEq/L (5-15); Aspartate Amino Transferase 30 U/L (17-59); Bilirubin,Total 0.5 mg/dl (0.2-1.3); Blood Urea Nitrogen 9 mg/dl (9-20); Calcium 8.8 mg/dl (8.4-10.2); Carbon Dioxide 26 mmol/L (22.0-30.0); Chloride 105 mmol/L (98-107); Creatinine Clearance Estimated 277 mL/min (50-200); Creatinine,Serum 0.60 mg/dl (0.66-1.25); Estimated Glomerular Filt Rate 143 ml/min (>60); GFR (African American) 173 ML/MIN (>60); Glucose 108 mg/dl (74-100); Potassium 4.4 mmoL/L (3.5-5.1); Sodium 140 mmol/L (136-145); Total Protein,Serum 6.9 g/dl (6.3-8.2)
[2024-10-01 13:01] LABS: Albumin/Globulin Ratio 1.5 (1.1-1.8); Alkaline Phosphatase 90 U/L (38-126); Globulin 2.8 g/dL (1.3-3.2)
[2024-10-01 13:05] LABS: C-Reactive Protein 2.8 mg/L (0-4)
--- NOTE | 2024-10-01 13:10 | PC.NURSE ---
patient to radiology for CT scans
[2024-10-01] MEDS: IOPAMIDOL-370 (76%);100ML BOTTLE 70 ML IV (13:11)
[2024-10-01] MEDS: 0.9 % SODIUM CHLORIDE 50 ML VIAL IV (13:11)
[2024-10-01] MEDS: SODIUM CHLORIDE 0.9% 10ML SYR (RAD ONLY) 10 ML IV (13:11)
[2024-10-01 13:14] LABS: NT Pro Brain Natriuretic Pep. 230 pg/mL (0-125)
--- NOTE | 2024-10-01 13:16 | PC.NURSE ---
patient back from radiology
[2024-10-01 13:17] LABS: Troponin I 0.01 ng/ml (0.00-0.034)
--- NOTE | 2024-10-01 14:18 | PC.NURSE ---
Dr Delgadillo at bedside. trialing room air sat
--- NOTE | 2024-10-01 14:23 | PC.NURSE ---
MD at bedside discussing admission with patient
--- NOTE | 2024-10-01 14:39 | PC.NURSE ---
messaged about possible admission.
--- NOTE | 2024-10-01 14:52 | PC.NURSE ---
HS notified of the need for a bed to admit for unstable angina
--- NOTE | 2024-10-01 14:58 | PC.NURSE ---
patient up to bathroom.
--- NOTE | 2024-10-01 15:14 | PC.NURSE ---
Attempted to call report to med/surg unit. Accepting RN is unable to take report at this time, and I was asked to call back in 15 min. Charge notified
--- NOTE | 2024-10-01 15:33 | PC.NURSE ---
received report from Junie Lobato RN
--- NOTE | 2024-10-01 15:44 | PC.NURSE ---
Gave report to Kathy Uribe RN. pt taken to med/surg via wheelchair
[2024-10-01 16:27] LABS: Troponin I 0.07 ng/ml (0.00-0.034)
--- NOTE | 2024-10-01 18:27 | EXP.HP ---
History of Present Illness *Admission Date: 10/01/24 *Reason for visit:: Chest pain *History of present illness: Kerwin Mendez is a 49-year-old male with a medical history significant for CAD with stents, current chronic smoking history, hypertension, type 2 diabetes, HFpEF, narcolepsy, former opioid use disorder on Suboxone GERD, anxiety/depression presents from PCPs office with worsening chest pain. Patient describes chest pain as bilateral lateral chest pain that is worse with inspiration and sometimes exertion. He endorses some radiation to left neck and jaw. He denies coughing, recent trauma, overexertion, fever/chills. He states he recently stopped taking metoprolol as his blood pressures were low at home, but cannot recall his BP reading. He states he has been feeling more fatigued over the past month, unable to do much after returning from work. He states since he has stopped his metoprolol, he has felt more energy. Workup in the ED significant for normal troponin, EKG, unremarkable CBC, CMP. CTA chest also unremarkable. ED discussed case with Dr. Gracia who recommended admission for monitoring and further workup. I discussed case with ED provider and decided to admit patient for further evaluation of chest pain. [facility] Disclaimer: The information contained in this section may have been updated after the patient was seen, as this information can be updated by other users. Medical History Elevated hemoglobin A1c DM2 (diabetes mellitus, type 2) Elevated glucose Memory loss Kidney stones NASREEN (obstructive sleep apnea) HLD (hyperlipidemia) HTN (hypertension) Narcolepsy Brain aneurysm Renal arterial aneurysm Stroke Hemorrhagic cerebrovascular accident (CVA) Surgical History H/O heart artery stent Hx of cardiac cath Family History (Updated 10/01/24 @ 16:04 by Kathy Phelps RN) Other No significant family history Social History (Updated 10/01/24 @ 16:04 by Kathy Phelps RN) Smoking Status: Current every day smoker alcohol intake: never current occupational status: employed Travel in the last 8 weeks?: None Have you lived/traveled outside US in past 30 days?: No Contact w/someone who lives/traveled outside US past 30 days?: No Exposure to someone with infectious disease in past 14 days?: No Do you have a fever (greater than 100.4 F or 38 C)?: No Have you tested positive for COVID-19?: No Exposed to someone with COVID-19 in past 14 days?: No Do you have a sore throat?: No Do you have a cough?: No Do you have any weakness?: No Do you have any diarrhea?: No Are you experiencing any unusual bleeding?: No Do you have any muscle aches/pain?: No Do you have any abdominal pain?: No Are you experiencing loss of taste or smell?: No Other Medical History Have you received the Flu Vaccine for this season: No Have you received the Pneumonia Vaccine: No Meds Home Medications and Allergies Home Medications ?Medication ?Instructions ?Recorded ?Confirmed ?Type amlodipine 10 mg tablet 5 mg PO DAILY blood pressure 11/10/22 10/01/24 History atorvastatin 80 mg tablet 80 mg PO HS Cholesterol 11/10/22 10/01/24 History buprenorphine 8 mg-naloxone 2 mg 2.5 tab sublingual DAILY WITHDRAWAL 11/10/22 10/01/24 History sublingual tablet clopidogrel 75 mg tablet 75 mg PO DAILY Blood Thinner 11/10/22 10/01/24 History ezetimibe 10 mg tablet 10 mg PO DAILY Cholesterol 11/10/22 10/01/24 History modafinil 200 mg tablet 200 mg PO DAILY Narcolepsy 11/10/22 10/01/24 History pantoprazole 40 mg tablet,delayed 40 mg PO DAILY GERD 11/10/22 10/01/24 History release valsartan 80 mg tablet 160 mg PO DAILY Blood pressure 11/10/22 10/01/24 History aspirin 81 mg tablet,delayed 81 mg PO DAILY #0 tabs 11/11/22 10/01/24 Rx release isosorbide mononitrate 60 mg 60 mg PO DAILY blood pressure 30 04/07/23 10/01/24 Rx tablet,extended release 24 hr days #30 tabs paroxetine HCl 20 mg tablet 20 mg PO DAILY 04/07/23 10/01/24 History potassium citrate 99 mg capsule 99 mg PO DAILY 04/07/23 10/01/24 History semaglutide 0.25 mg or 0.5 mg (2 0.25 mg (0.368 mL) SQ WEEKLY #3 mL 04/28/23 10/01/24 Rx mg/3 mL) subcutaneous pen injector (Ozempic) furosemide 20 mg tablet 40 mg PO DAILY 10/01/24 10/01/24 History metformin 500 mg tablet 1,000 mg PO DAILY 10/01/24 10/01/24 History metoprolol succinate 100 mg 50 mg PO DAILY 10/01/24 10/01/24 History tablet,extended release 24 hr New Prescriptions to Start Prescriptions: Allergies Allergy/AdvReac Type Severity Reaction Status Date / Time No Known Allergies Allergy Verified 10/01/24 16:55 Exam Data for Last 24 hours Vital signs and Labs for Last 24 Hours: Temp Pulse Resp BP Pulse Ox O2 Del Method O2 Flow Rate 98.2 F 66 19 137/83 96 Room Air 2 10/01/24 16:00 10/01/24 16:00 10/01/24 16:00 10/01/24 16:00 10/01/24 16:00 10/01/24 17:18 10/01/24 12:44 Laboratory Results - last 24 hr 10/01/24 12:44: WBC 11.4 H, RBC 4.70, Hgb 14.4, Hct 42.1, MCV 89.6, MCH 30.6, MCHC 34.2, RDW 13.1, Plt Count 233, MPV 9.8, Neut % (Auto) 73.6, Lymph % (Auto) 19.1, Adams % (Auto) 4.8, Eos % (Auto) 1.3, Baso % (Auto) 0.7, Neut # (Auto) 8.4 H, Lymph # (Auto) 2.2, Adams # (Auto) 0.6, Eos # (Auto) 0.2, Baso # (Auto) 0.1, Sodium 140, Potassium 4.4, Chloride 105, Carbon Dioxide 26, Anion Gap 13.4, BUN 9, Creatinine 0.60 L, Estimated Creat Clear 277, Estimated GFR 143, Est GFR ( Amer) 173, Glucose 108 H, Calcium 8.8, Total Bilirubin 0.5, AST 30, ALT 27, Alkaline Phosphatase 90, Troponin I 0.01, C-Reactive Protein 2.8, NT-Pro-B Natriuret Pep 230 H, Total Protein 6.9, Albumin 4.1, Globulin 2.8, Albumin/Globulin Ratio 1.5 10/01/24 12:51: SARS-CoV-2 (PCR) Not detected, Influenza A Untype (PCR) Not detected, Influenza Type B (PCR) Not detected 10/01/24 15:42: Troponin I 0.07 H I & O for Last 24 hours: Intake & Output 09/28/24 09/29/24 09/30/24 10/01/24 23:59 23:59 23:59 23:59 Intake Total 420 / 420 Output Total 0 / 0 Balance 420 / 420 Weight 129.274 kg Constitutional Constitutional: no acute distress and obese *Routine HEENT Exam Head: Present normocephalic Eye: Present EOMI and PERRL ENT: Present mucous membranes moist *Routine Neck Exam Neck: Present supple; Absent lymphadenopathy *Routine Respiratory Exam Respiratory: Present CTA bilaterally *Routine Cardiovascular Exam Cardiovascular: Present RRR *Routine Abdominal Exam Abdominal: Present soft and normoactive bowel sounds; Absent tenderness *Routine Rectal Exam Rectal:: deferred *Routine Genitalia Exam Genitalia:: deferred *Routine Extremities Exam Extremities: Absent cyanosis, clubbing or edema *Routine Skin Exam Skin: Present warm; Absent rash *Routine Neurological Exam Neurological: Present alert and oriented X3 Assessment and Plan *Assessment and plan (1) Chest pain: Status: Acute Qualifiers: Chest pain type: chest pain due to myocardial ischemia Ischemic chest pain type: unstable angina pectoris Qualified Code(s): I20.0 - Unstable angina Category: Medical Code(s): R07.9 - Chest pain, unspecified Plan Kerwin Mendez is a 49-year-old male with a medical history significant for CAD with stents, current chronic smoking history, hypertension, type 2 diabetes, HFpEF, narcolepsy, former opioid use disorder on Suboxone GERD, anxiety/depression presents from PCPs office with worsening chest pain. Patient describes chest pain as bilateral lateral chest pain that is worse with inspiration and sometimes exertion. He endorses some radiation to left neck and jaw. He denies coughing, recent trauma, overexertion, fever/chills. He states he recently stopped taking metoprolol as his blood pressures were low at home, but cannot recall his BP reading. He states he has been feeling more fatigued over the past month, unable to do much after returning from work. He states since he has stopped his metoprolol, he has felt more energy. Workup in the ED significant for normal troponin, EKG, unremarkable CBC, CMP. CTA chest also unremarkable. ED discussed case with Dr. Gracia who recommended admission for monitoring and further workup. I discussed case with ED provider and decided to admit patient for further evaluation of chest pain. #Chest pain #History of CAD with stents ? Presents with bilateral pleuritic lateral chest pain with some radiation to the left neck/jaw. ? Troponins, EKG unremarkable. ? Chest pain seems more related to viral/MSK pain. However, given risk factors including current smoking, diabetes, hypertension, will pursue further workup including ECHO. ? Follow-up respiratory panel. ? Follow-up ECHO. ? Follow-up A1c, lipid panel, TSH, free T4. ? Cardiology consulted, pending further recommendations. ? Continue aspirin, statin. #Type 2 diabetes ? Follow-up A1c. ? LDSSI, ACHS glucose checks. #Hypertension #HFpEF ? Continue home medication once reconciled. #Former opioid use disorder in remission ? Continue home Suboxone once reconciled. #GERD ? Continue home PPI. #Anxiety/depression ? Continue home medications once reconciled. Full code DVT prophylaxis: Lovenox 40 mg
--- NOTE | 2024-10-01 18:35 | PC.NURSE ---
called lab and they stated they could add on full respiratory panel to swab that was collected in er earlier for covid/flu swab and they will call back if there's any issues
[2024-10-01 19:12] LABS: Adenovirus,PCR Not Detected (NotDetected); Chlamydophila Pneumoniae, PCR Not Detected (NotDetected); Coronavirus 19, PCR Not Detected (NotDetected); Coronovirus HKU1,PCR Not Detected (NotDetected); Influenza A, PCR Not Detected (NotDetected); Influenza AH1, 2009 Not Detected (NotDetected); Influenza AH1, PCR Not Detected (NotDetected); Influenza AH3,PCR Not Detected (NotDetected); Influenza B, PCR Not Detected (NotDetected); Mycoplasma Pneumoniae, PCR Not Detected (NotDetected); Parainfluenza 1, PCR Not Detected (NotDetected); Parainfluenza 2, PCR Not Detected (NotDetected); Parainfluenza 3, PCR Not Detected (NotDetected); Parainfluenza 4, PCR Not Detected (NotDetected)
[2024-10-01 20:20] LABS: Troponin I 0.01 ng/ml (0.00-0.034)
[2024-10-01 20:56] LABS: POC Glucose,Bedside 92 (70-110)
[2024-10-01] MEDS: ATORVASTATIN 40MG TABLET 40 MG PO (22:59)
[2024-10-02] VITALS (20 sets, daily range): BP systolic 118–173; BP diastolic 82–104; PULSE 60–81; RESP 12–20; TEMP 36.6–36.9; O2SAT 94–99; BMI 37.6
--- NOTE | 2024-10-02 03:25 | PC.NURSE ---
Patient is alert and oriented x4. He was observed to be resting in bed with eyes closed, respirations even and unlabored on room air, and no apparent distress throughout the majority of the night. He has not had any further complaints of chest pain, denies dizziness, worsened fatigue, etc. this shift. Oxygen saturations > 90%, heart rate controlled. Full respiratory panel (-). Auscultation of his heart, lungs, and bowels were within normal findings. He ambulates independently in his room/to the bathroom without reported difficulty. Blood pressures slightly elevated. ACHS glucose checks performed. Patient has remained NPO since midnight pending cardiology consult. Echo previously ordered. At this time, the patient remains resting in bed. No acute changes noted thus far. Call light within reach.
[2024-10-02] MEDS: ACETAMINOPHEN 325MG TAB 650 MG PO (05:15)
[2024-10-02 05:29] LABS: POC Glucose,Bedside 97 (70-110)
[2024-10-02 06:37] LABS: Hematocrit 43.0 % (42.0-52.0); Hemoglobin 14.1 g/dL (14.1-18.0); Immature Granulocytes % 0.4 %; Mean Corpuscular HGB Conc 32.8 g/dL (31.8-35.4); Mean Corpuscular Hemoglobin 29.8 pg (27.0-31.2); Mean Corpuscular Volume 90.9 fl (80-94); Nucleated Red Blood Cells % 0 %; Platelet Count 218 K/mm3 (142-424); Red Blood Count 4.73 M/mm3 (4.60-6.20); Red Cell Distribution Width-SD 43.4 fL; White Blood Count 8.1 K/mm3 (4.8-10.8)
[2024-10-02 06:44] LABS: Albumin Level 4.1 g/dl (3.5-5.0); Chloride 105 mmol/L (98-107); Potassium 4.0 mmoL/L (3.5-5.1); Sodium 139 mmol/L (136-145)
[2024-10-02 06:46] LABS: Blood Urea Nitrogen 9 mg/dl (9-20); Creatinine Clearance Estimated 268 mL/min (50-200); Creatinine,Serum 0.60 mg/dl (0.66-1.25); Estimated Glomerular Filt Rate 143 ml/min (>60); GFR (African American) 173 ML/MIN (>60)
[2024-10-02 06:47] LABS: Alanine Aminotransferase 22 U/L (12-78); Albumin/Globulin Ratio 1.5 (1.1-1.8); Alkaline Phosphatase 87 U/L (38-126); Anion Gap 10.0 mEq/L (5-15); Aspartate Amino Transferase 27 U/L (17-59); Bilirubin,Total 0.4 mg/dl (0.2-1.3); Calcium 8.9 mg/dl (8.4-10.2); Carbon Dioxide 28 mmol/L (22.0-30.0); Cholesterol 120 mg/dl (140-200); Globulin 2.8 g/dL (1.3-3.2); Glucose 100 mg/dl (74-100); HDL Cholesterol 23 mg/dl (40-60); Magnesium 1.6 mg/dl (1.6-2.3); Total Protein,Serum 6.9 g/dl (6.3-8.2); Triglycerides 249 mg/dl (30-150)
[2024-10-02 07:18] LABS: Thyroid Stimulating Hormone 2.11 uIU/mL (0.465-4.68)
[2024-10-02 07:40] LABS: Hemoglobin A1C 5.9 % (4.0-6.0)
[2024-10-02 07:43] LABS: Free T4 (Free Thyroxine) 0.92 ng/dl (0.78-2.19)
[2024-10-02] MEDS: ASPIRIN EC 81MG TABLET 81 MG PO (08:24)
--- NOTE | 2024-10-02 10:24 | P.CONCA_ITS ---
History of Present Illness History of Present Illness Consult date: 10/02/24 Requesting physician: Russ Islas Consult reason: chest pain Chief complaint: chest pain History of present illness: This is a 49-year-old white male with a past medical history significant for coronary artery disease with stents, current tobacco use, hypertension, type 2 diabetes mellitus, HFpEF, narcolepsy and former opioid use disorder on Suboxone who presented to PCP office with complaints of worsening chest pain. Patient reports his pain is bilateral and radiates into neck and jaw. He states some things can make the pain worse like deep breathing and movement but he also has just the aching pain at rest at times as well. He also reports that he has been having more fatigue over the past month but denies shortness of breath. Recently stopped taking beta-radha due to hypotension. Initial EKG in emergency department was unremarkable. CTA chest was negative for PE. Troponin was 0.07 trending down to 0.01. Patient was admitted for unstable angina and further cardiology workup. Echocardiogram is pending. [facility] Disclaimer: The information contained in this section may have been updated after the patient was seen, as this information can be updated by other users. Medical History Elevated hemoglobin A1c DM2 (diabetes mellitus, type 2) Elevated glucose Memory loss Kidney stones NASREEN (obstructive sleep apnea) HLD (hyperlipidemia) HTN (hypertension) Narcolepsy Brain aneurysm Renal arterial aneurysm Stroke Hemorrhagic cerebrovascular accident (CVA) Surgical History H/O heart artery stent Hx of cardiac cath Family History (Updated 10/01/24 @ 16:04 by Kathy Phelps RN) Other No significant family history Social History (Updated 10/01/24 @ 16:04 by Kathy Phelps RN) Smoking Status: Current every day smoker alcohol intake: never current occupational status: employed Travel in the last 8 weeks?: None Have you lived/traveled outside [place] in past 30 days?: No Contact w/someone who lives/traveled outside [place] past 30 days?: No Exposure to someone with infectious disease in past 14 days?: No Do you have a fever (greater than 100.4 F or 38 C)?: No Have you tested positive for COVID-19?: No Exposed to someone with COVID-19 in past 14 days?: No Do you have a sore throat?: No Do you have a cough?: No Do you have any weakness?: No Do you have any diarrhea?: No Are you experiencing any unusual bleeding?: No Do you have any muscle aches/pain?: No Do you have any abdominal pain?: No Are you experiencing loss of taste or smell?: No Review of Systems Review of Systems Review of systems:: pertinent systems reviewed and negative unless documented below Constitutional Constitutional: Reports system reviewed and no additional complaints, except as documented *Cardiovascular Cardiovascular: Reports system reviewed and no additional complaints, except as documented *Respiratory Respiratory: Reports system reviewed and no additional complaints, except as documented *Gastrointestinal Gastrointestinal: Reports system reviewed and no additional complaints, except as documented *Neurologic Neurologic: Reports system reviewed and no additional complaints, except as documented and Denies confusion Psychiatric Psychiatric: Reports system reviewed and no additional complaints, except as documented and Denies confusion Exam Data for Last 24 hours Vital signs and Labs for Last 24 Hours: Temp Pulse Resp BP Pulse Ox O2 Del Method O2 Flow Rate 97.8 F 66 17 160/94 H 98 Room Air 2 10/02/24 07:45 10/02/24 07:45 10/02/24 07:45 10/02/24 07:45 10/02/24 08:15 10/02/24 09:10 10/01/24 12:44 Laboratory Results - last 24 hr 10/01/24 12:44: WBC 11.4 H, RBC 4.70, Hgb 14.4, Hct 42.1, MCV 89.6, MCH 30.6, MCHC 34.2, RDW 13.1, Plt Count 233, MPV 9.8, Neut % (Auto) 73.6, Lymph % (Auto) 19.1, [place] % (Auto) 4.8, Eos % (Auto) 1.3, Baso % (Auto) 0.7, Neut # (Auto) 8.4 H, Lymph # (Auto) 2.2, [place] # (Auto) 0.6, Eos # (Auto) 0.2, Baso # (Auto) 0.1, Sodium 140, Potassium 4.4, Chloride 105, Carbon Dioxide 26, Anion Gap 13.4, BUN 9, Creatinine 0.60 L, Estimated Creat Clear 277, Estimated GFR 143, Est GFR ( Amer) 173, Glucose 108 H, Calcium 8.8, Total Bilirubin 0.5, AST 30, ALT 27, Alkaline Phosphatase 90, Troponin I 0.01, C-Reactive Protein 2.8, NT-Pro-B Natriuret Pep 230 H, Total Protein 6.9, Albumin 4.1, Globulin 2.8, Albumin/Globulin Ratio 1.5 10/01/24 12:51: Chlamy pneumoniae PCR Not detected, Adenovirus (PCR) Not detected, B. pertussis DNA (PCR) Not detected, Coronavirus OC43 (PCR) Not detected, Coronavirus HKU1 (PCR) Not detected, Coronavirus 229E (PCR) Not detected, SARS-CoV-2 (PCR) Not detected 10/01/24 12:51: SARS-CoV-2 (PCR) Not detected, Coronavirus NL63 (PCR) Not detected, Human Metapneumovir PCR Not detected, Influenza A (H1) PCR Not detected, Influ A (H1N1/09) PCR Not detected, Influenza A (H3) PCR Not detected, Influenza Type A (PCR) Not detected, Influenza A Untype (PCR) Not detected, Influenza Type B (PCR) Not detected 10/01/24 12:51: Influenza Type B (PCR) Not detected, M. pneumoniae (PCR) Not detected, Parainfluenza 1 (PCR) Not detected, Parainfluenza 2 (PCR) Not detected, Parainfluenza 3 (PCR) Not detected, Parainfluenza 4 (PCR) Not detected, RSV (PCR) Not detected, Entero/Rhino (PCR) Not detected 10/01/24 15:42: Troponin I 0.07 H 10/01/24 19:34: Troponin I 0.01 10/01/24 20:04: POC Glucose 92 10/02/24 05:09: POC Glucose 97 10/02/24 06:05: WBC 8.1 D, RBC 4.73, Hgb 14.1, Hct 43.0, MCV 90.9, MCH 29.8, MCHC 32.8, RDW 13.0, Plt Count 218, MPV 9.9, Neut % (Auto) 60.6, Lymph % (Auto) 27.9, [place] % (Auto) 6.4, Eos % (Auto) 4.0, Baso % (Auto) 0.7, Neut # (Auto) 4.9, Lymph # (Auto) 2.3, [place] # (Auto) 0.5, Eos # (Auto) 0.3, Baso # (Auto) 0.1, Sodium 139, Potassium 4.0, Chloride 105, Carbon Dioxide 28, Anion Gap 10.0, BUN 9, Creatinine 0.60 L, Estimated Creat Clear 268, Estimated GFR 143, Est GFR ( Amer) 173, Glucose 100, Hemoglobin A1c 5.9, Calcium 8.9, Magnesium 1.6, Total Bilirubin 0.4, AST 27, ALT 22, Alkaline Phosphatase 87, Total Protein 6.9, Albumin 4.1, Globulin 2.8, Albumin/Globulin Ratio 1.5, Triglycerides 249 H, Cholesterol 120 L, LDL Cholesterol Direct 63.33 L, VLDL Cholesterol 50 H, HDL Cholesterol 23 L, Cholesterol/HDL Ratio 5.2 H, TSH 2.11, Free T4 0.92 I & O for Last 24 hours: Intake & Output 09/29/24 09/30/24 10/01/24 10/02/24 23:59 23:59 23:59 23:59 Intake Total 420 / 600 180 / 180 Output Total 0 / 0 0 / 0 Balance 420 / 600 180 / 180 Weight 285 lb 284 lb Constitutional Constitutional: no acute distress *Routine Respiratory Exam Respiratory: Present CTA bilaterally and symmetric chest movement *Routine Cardiovascular Exam Cardiovascular: Present RRR, Normal S1 and Normal S2 *Routine Abdominal Exam Abdominal: Present soft and normoactive bowel sounds; Absent tenderness *Routine Extremities Exam Extremities: Present full ROM and normal capillary refill; Absent edema *Routine Skin Exam Skin: Present intact, dry and warm Detailed Neck Exam: Thyroids Thyroid: Absent bruit Meds Home Medications and Allergies Home Medications ?Medication ?Instructions ?Recorded ?Confirmed ?Type amlodipine 10 mg tablet 5 mg PO DAILY blood pressure 11/10/22 10/01/24 History atorvastatin 80 mg tablet 80 mg PO HS Cholesterol 1005/3010/01/24 History buprenorphine 8 mg-naloxone 2 mg 2.5 tab sublingual DA [place] WITHDRAWAL 11/10/22 10/01/24 History sublingual tablet clopidogrel 75 mg tablet 75 mg PO DAILY Blood Thinner 11/10/22 10/01/24 History ezetimibe 10 mg tablet 10 mg PO DAILY Cholesterol 1 004/23 08/25/25 History modafinil 200 mg tablet 200 mg PO DAILY Narcolepsy 1 10/01/24 History pantoprazole 40 mg tablet,delayed 40 mg PO DAILY GERD 11/10/22 10/01/24 History release valsartan 80 mg tablet 160 mg PO DAILY Blood pressu re 11/10/22 10/01/24 History aspirin 81 mg tablet,delayed 81 mg PO DAILY #0 tabs 10/01/24 Rx release isosorbide mononitrate 60 mg 60 mg PO DAILY blood pres sure 30 04/07/23 10/01/24 Rx tablet,extended release 24 hr days #30 tabs paroxetine HCl 20 mg tablet 20 mg PO DAILY 04/07/23 History potassium citrate 99 mg capsule 99 mg PO DAILY 4 10/01/24 History semaglutide 0.25 mg or 0.5 mg (2 0.25 mg (0.368 mL) SQ WEEKLY #3 mL 04/28/23 10/01/24 Rx mg/3 mL) subcutaneous pen injector (Ozempic) furosemide 20 mg tablet 40 mg PO DAILY 10/01/2409/08 History metformin 500 mg tablet 1,000 mg PO DAILY 10/01/24 0 10/01/24 History metoprolol succinate 100 mg 50 mg PO DAILY 10/01/24 History tablet,extended release 24 hr New Prescriptions to Start Prescriptions: Allergies Allergy/AdvReac Type Severity Reaction Status Date / Time No Known Allergies Allergy Verified 10/01/24 16:55 Assessment and Plan *Assessment and plan (1) Unstable angina: Status: Acute Category: Medical Code(s): I20.0 - Unstable angina (2) DM2 (diabetes mellitus, type 2): Status: Acute Category: Medical Code(s): E11.9 - Type 2 diabetes mellitus without complications (3) HTN (hypertension): Status: Acute Category: Medical Code(s): I10 - Essential (primary) hypertension (4) HLD (hyperlipidemia): Status: Acute Category: Medical Code(s): E78.5 - Hyperlipidemia, unspecified (5) Coronary artery disease: Status: Chronic Qualifiers: Associated angina: with unstable angina Coronary Disease-Associated Artery/Lesion type: [place] artery [place] vs. transplanted heart: [place] heart Qualified Code(s): I25.110 - Atherosclerotic heart disease of [place] coronary artery with unstable angina pectoris Category: Medical Code(s): I25.10 - Atherosclerotic heart disease of [place] coronary artery without angina pectoris (6) History of hemorrhagic cerebrovascular accident (CVA) without residual deficits: Status: Chronic Category: Medical Code(s): Z86.73 - Personal history of transient ischemic attack (TIA), and cerebral infarction without residual deficits Plan History of coronary artery disease with stenting Unstable angina Troponin 0.07 EKG negative for STEMI Will proceed with left heart catheterization today. Discussed risk versus benefits with patient he is agreeable to proceed. Note: History of cerebral hemorrhage Effient is contraindicated Continue aspirin and statin Echo shows normal biventricular systolic function with no significant valvular stenosis or regurg. Ascending aorta is mildly dilated 3.8. Chest CT negative for PE or aortic dissection Hypertension Start irbesartan 75 mg p.o. daily Hyperlipidemia LDL goal is < 55, LDL is 63. Continue statin 10/02/2024: [facility] today.
--- NOTE | 2024-10-02 10:30 | IR_ITS ---
APPROVED REPORT Patient Location: Inpatient PROCEDURES Left heart catheterization Left ventriculogram Selective coronary angiogram INDICATION Known coronary artery disease, Acute non-ST elevation myocardial infarction Informed consent was obtained prior to the procedure. COMPLICATIONS None Estimated Blood Loss: Less than 10 mls TECHNIQUE One percent lidocaine used to anesthetize the right anterior aspect of the wrist. The right radial artery was accessed via the Seldinger technique. A 6 [place] sheath was placed in the right radial artery. 2.5 mg of Verapamil, 800 mcg of nitroglycerin, 1mg Lidocaine and 5000 U Heparin were given through the arterial sheath. The JL3 catheter was also used to perform left heart catheterization, left ventriculogram and selective coronary angiogram. At the end of the procedure the sheath was removed good hemostasis was achieved using Traclet band, patient was transferred to the postop holding area in stable condition. ANGIOGRAPHIC RESULTS The left main artery Has a distal 10 to 20% stenosis The left anterior descending artery Has a concentric 20% stenosis with a mid vessel 20 to 30% calcified stenosis. A medium sized first diagonal artery has an ostial 90% complex stenosis. The circumflex artery Has an ostial 60% stenosis followed by a widely patent proximal to mid vessel stent which is widely patent free of in-stent restenosis with excellent proximal distal transitioning The right coronary artery Proximally occluded and fills via [id number] collaterals The CHERY ventriculogram reveals Preserved at 55% The left ventricular end-diastolic pressure 20 mmHg IMPRESSION Coronary disease as described above which is best managed medically at this time I do not recommend stenting the first diagonal artery as this would require bifurcating stenting of the LAD which has minimal disease. Preserved ejection fraction Elevated LVEDP PLAN 1. Dual antiplatelet therapy for at least 1 year 2. Cardiac rehabilitation 3. LDL less than 55 to proceed with high intensity statin 4. Avoidance of tobacco products 5. Risk factor modification Electronically signed by : Venkat Gracia MD 10/02/2024 14:25:40
[2024-10-02] MEDS: IRBESARTAN 75MG TABLET 75 MG PO (11:33)
[2024-10-02] MEDS: NITROGLYCERIN 800MCG/8ML SYR (CATH LAB) 800 MCG IA (13:38)
[2024-10-02] MEDS: HEPARIN 1,000 UNITS/ML 10ML VIAL (CATH LAB) 5000 UNIT IV (13:39)
[2024-10-02] MEDS: VERAPAMIL 2.5MG/ML 2ML VIAL 2.5 MG IV (13:39)
[2024-10-02] MEDS: LIDOCAINE 1% 10ML MDV 10 ML IJ (13:39)
[2024-10-02] MEDS: HEPARIN 1,000 UNITS/500ML NS (CATH LAB) 3000 UNIT IV (13:39)
[2024-10-02] MEDS: 0.9 % SODIUM CHLORIDE 500 ML 25 ML IV (13:39)
[2024-10-02] MEDS: MIDAZOLAM HCL 1MG/ML 5ML VIAL 1 MG IV (13:53)
[2024-10-02] MEDS: FENTANYL 100MCG/2ML VIAL 50 MCG IV (13:54)
[2024-10-02] MEDS: IOPAMIDOL-370 (76%);100ML BOTTLE 50 ML IV (14:26)
[2024-10-02] MEDS: FUROSEMIDE 40MG/4ML VIAL 40 MG IV (15:32)
--- NOTE | 2024-10-02 16:37 | EXP.DC.SUM ---
General Admission date:: 10/01/24 HPI HPI HPI: Kerwin Mendez is a 49-year-old male with a medical history significant for CAD with stents, current chronic smoking history, hypertension, type 2 diabetes, HFpEF, narcolepsy, former opioid use disorder on Suboxone GERD, anxiety/depression presents from PCPs office with worsening chest pain. Patient describes chest pain as bilateral lateral chest pain that is worse with inspiration and sometimes exertion. He endorses some radiation to left neck and jaw. He denies coughing, recent trauma, overexertion, fever/chills. He states he recently stopped taking metoprolol as his blood pressures were low at home, but cannot recall his BP reading. He states he has been feeling more fatigued over the past month, unable to do much after returning from work. He states since he has stopped his metoprolol, he has felt more energy. Workup in the ED significant for normal troponin, EKG, unremarkable CBC, CMP. CTA chest also unremarkable. ED discussed case with Dr. Gracia who recommended admission for monitoring and further workup. I discussed case with ED provider and decided to admit patient for further evaluation of chest pain. Hospital Course Hospital Course Hospital Course: Kerwin Mendez is a 49-year-old male with a medical history significant for CAD with stents, current chronic smoking history, hypertension, type 2 diabetes, HFpEF, narcolepsy, former opioid use disorder on Suboxone GERD, anxiety/depression presents from PCPs office with worsening chest pain. Patient describes chest pain as bilateral lateral chest pain that is worse with inspiration and sometimes exertion. He endorses some radiation to left neck and jaw. He denies coughing, recent trauma, overexertion, fever/chills. He states he recently stopped taking metoprolol as his blood pressures were low at home, but cannot recall his BP reading. He states he has been feeling more fatigued over the past month, unable to do much after returning from work. He states since he has stopped his metoprolol, he has felt more energy. Workup in the ED significant for normal troponin, EKG, unremarkable CBC, CMP. CTA chest also unremarkable. ED discussed case with Dr. Gracia who recommended admission for monitoring and further workup. I discussed case with ED provider and decided to admit patient for further evaluation of chest pain. #Chest pain #History of CAD with stents ? Presented with bilateral lateral chest pain with some radiation to the left neck/jaw. Worse with inspiration. ? Troponins, EKG unremarkable. Respiratory panel unremarkable, A1c 5.9, LDL 63, TSH normal ? Chest pain seems more related to viral/MSK pain. However, given risk factors including current smoking, diabetes, hypertension, and history of CAD with stents pursued ischemic workup. ? Cardiology consulted, s/p [facility] 10/02/2024 showing 90% complex stenosis in LAD diagonal artery which Dr. Gracia recommended medical management with DAPT for 1 year. ? ECHO with normal biventricular systolic function. ? Continue aspirin 81 mg, Plavix 75 mg, atorvastatin 80 mg, metoprolol succinate 100 mg, valsartan 80 mg. ? Follow-up with cardiology within 1 week. #Type 2 diabetes #Obesity ? A1c 5.9%. Continue home regimen. ? BMI 37, continue Ozempic. #Hypertension # Chronic HFpEF ? Continue home metoprolol, valsartan, Lasix 40 mg. #Former opioid use disorder in remission ? Continue home Suboxone. #GERD ? Continue home PPI. #Anxiety/depression ? Continue home paroxetine. Total time spent on discharge: 31 minutes on chart review, counseling, documentation, and direct care with patient. Exam Data for Last 24 hours Vital signs and Labs for Last 24 Hours: Temp Pulse Resp BP Pulse Ox O2 Del Method O2 Flow Rate 98.3 F 72 16 146/88 H 96 Room Air 2 10/02/24 14:20 10/02/24 16:20 10/02/24 16:20 10/02/24 16:20 10/02/24 16:20 10/02/24 16:20 10/01/24 12:44 Laboratory Results - last 24 hr 10/01/24 12:51: Chlamy pneumoniae PCR Not detected, Adenovirus (PCR) Not detected, B. pertussis DNA (PCR) Not detected, Coronavirus OC43 (PCR) Not detected, Coronavirus HKU1 (PCR) Not detected, Coronavirus 229E (PCR) Not detected, SARS-CoV-2 (PCR) Not detected, Coronavirus NL63 (PCR) Not detected, Human Metapneumovir PCR Not detected, Influenza A (H1) PCR Not detected, Influ A (H1N1/09) PCR Not detected, Influenza A (H3) PCR Not detected, Influenza Type A (PCR) Not detected, Influenza Type B (PCR) Not detected, M. pneumoniae (PCR) Not detected, Parainfluenza 1 (PCR) Not detected, Parainfluenza 2 (PCR) Not detected, Parainfluenza 3 (PCR) Not detected, Parainfluenza 4 (PCR) Not detected, RSV (PCR) Not detected, Entero/Rhino (PCR) Not detected 10/01/24 19:34: Troponin I 0.01 10/01/24 20:04: POC Glucose 92 10/02/24 05:09: POC Glucose 97 10/02/24 06:05: WBC 8.1 D, RBC 4.73, Hgb 14.1, Hct 43.0, MCV 90.9, MCH 29.8, MCHC 32.8, RDW 13.0, Plt Count 218, MPV 9.9, Neut % (Auto) 60.6, Lymph % (Auto) 27.9, [place] % (Auto) 6.4, Eos % (Auto) 4.0, Baso % (Auto) 0.7, Neut # (Auto) 4.9, Lymph # (Auto) 2.3, [place] # (Auto) 0.5, Eos # (Auto) 0.3, Baso # (Auto) 0.1, Sodium 139, Potassium 4.0, Chloride 105, Carbon Dioxide 28, Anion Gap 10.0, BUN 9, Creatinine 0.60 L, Estimated Creat Clear 268, Estimated GFR 143, Est GFR ( Amer) 173, Glucose 100, Hemoglobin A1c 5.9, Calcium 8.9, Magnesium 1.6, Total Bilirubin 0.4, AST 27, ALT 22, Alkaline Phosphatase 87, Total Protein 6.9, Albumin 4.1, Globulin 2.8, Albumin/Globulin Ratio 1.5, Triglycerides 249 H, Cholesterol 120 L, LDL Cholesterol Direct 63.33 L, VLDL Cholesterol 50 H, HDL Cholesterol 23 L, Cholesterol/HDL Ratio 5.2 H, TSH 2.11, Free T4 0.92 Temp Pulse Resp BP Pulse Ox O2 Del Method O2 Flow Rate 97.8 F 66 17 160/94 H 98 Room Air 2 10/02/24 07:45 10/02/24 07:45 10/02/24 07:45 10/02/24 07:45 10/02/24 08:15 10/02/24 09:10 10/01/24 12:44 Laboratory Results - last 24 hr 10/01/24 12:44: WBC 11.4 H, RBC 4.70, Hgb 14.4, Hct 42.1, MCV 89.6, MCH 30.6, MCHC 34.2, RDW 13.1, Plt Count 233, MPV 9.8, Neut % (Auto) 73.6, Lymph % (Auto) 19.1, [place] % (Auto) 4.8, Eos % (Auto) 1.3, Baso % (Auto) 0.7, Neut # (Auto) 8.4 H, Lymph # (Auto) 2.2, [place] # (Auto) 0.6, Eos # (Auto) 0.2, Baso # (Auto) 0.1, Sodium 140, Potassium 4.4, Chloride 105, Carbon Dioxide 26, Anion Gap 13.4, BUN 9, Creatinine 0.60 L, Estimated Creat Clear 277, Estimated GFR 143, Est GFR ( Amer) 173, Glucose 108 H, Calcium 8.8, Total Bilirubin 0.5, AST 30, ALT 27, Alkaline Phosphatase 90, Troponin I 0.01, C-Reactive Protein 2.8, NT-Pro-B Natriuret Pep 230 H, Total Protein 6.9, Albumin 4.1, Globulin 2.8, Albumin/Globulin Ratio 1.5 10/01/24 12:51: Chlamy pneumoniae PCR Not detected, Adenovirus (PCR) Not detected, B. pertussis DNA (PCR) Not detected, Coronavirus OC43 (PCR) Not detected, Coronavirus HKU1 (PCR) Not detected, Coronavirus 229E (PCR) Not detected, SARS-CoV-2 (PCR) Not detected 10/01/24 12:51: SARS-CoV-2 (PCR) Not detected, Coronavirus NL63 (PCR) Not detected, Human Metapneumovir PCR Not detected, Influenza A (H1) PCR Not detected, Influ A (H1N1/09) PCR Not detected, Influenza A (H3) PCR Not detected, Influenza Type A (PCR) Not detected, Influenza A Untype (PCR) Not detected, Influenza Type B (PCR) Not detected 10/01/24 12:51: Influenza Type B (PCR) Not detected, M. pneumoniae (PCR) Not detected, Parainfluenza 1 (PCR) Not detected, Parainfluenza 2 (PCR) Not detected, Parainfluenza 3 (PCR) Not detected, Parainfluenza 4 (PCR) Not detected, RSV (PCR) Not detected, Entero/Rhino (PCR) Not detected 10/01/24 15:42: Troponin I 0.07 H 10/01/24 19:34: Troponin I 0.01 10/01/24 20:04: POC Glucose 92 10/02/24 05:09: POC Glucose 97 10/02/24 06:05: WBC 8.1 D, RBC 4.73, Hgb 14.1, Hct 43.0, MCV 90.9, MCH 29.8, MCHC 32.8, RDW 13.0, Plt Count 218, MPV 9.9, Neut % (Auto) 60.6, Lymph % (Auto) 27.9, [place] % (Auto) 6.4, Eos % (Auto) 4.0, Baso % (Auto) 0.7, Neut # (Auto) 4.9, Lymph # (Auto) 2.3, [place] # (Auto) 0.5, Eos # (Auto) 0.3, Baso # (Auto) 0.1, Sodium 139, Potassium 4.0, Chloride 105, Carbon Dioxide 28, Anion Gap 10.0, BUN 9, Creatinine 0.60 L, Estimated Creat Clear 268, Estimated GFR 143, Est GFR ( Amer) 173, Glucose 100, Hemoglobin A1c 5.9, Calcium 8.9, Magnesium 1.6, Total Bilirubin 0.4, AST 27, ALT 22, Alkaline Phosphatase 87, Total Protein 6.9, Albumin 4.1, Globulin 2.8, Albumin/Globulin Ratio 1.5, Triglycerides 249 H, Cholesterol 120 L, LDL Cholesterol Direct 63.33 L, VLDL Cholesterol 50 H, HDL Cholesterol 23 L, Cholesterol/HDL Ratio 5.2 H, TSH 2.11, Free T4 0.92 I & O for Last 24 hours: Intake & Output 09/29/24 09/30/24 10/01/24 10/02/24 23:59 23:59 23:59 23:59 Intake Total 420 / 600 680 / 680 Output Total 0 / 0 0 / 0 Balance 420 / 600 680 / 680 Weight 129.274 kg 128.82 kg Intake & Output 09/29/24 09/30/24 10/01/2426/25 23:59 23:59 23:59 23:59 Intake Total 420 / 600 180 / 180 Output Total 0 / 0 0 / 0 Balance 420 / 600 180 / 180 Weight 285 lb 284 lb Constitutional Constitutional: no acute distress *Routine Respiratory Exam Respiratory: Present CTA bilaterally and symmetric chest movement *Routine Cardiovascular Exam Cardiovascular: Present RRR, Normal S1 and Normal S2 *Routine Abdominal Exam Abdominal: Present soft and normoactive bowel sounds; Absent tenderness *Routine Extremities Exam Extremities: Present full ROM and normal capillary refill; Absent edema *Routine Skin Exam Skin: Present intact, dry and warm Detailed Neck Exam: Thyroids Thyroid: Absent bruit Results Data Completed and Pending Labs on day of discharge: Labs from last 24 hours 10/02/24 10/02/24 10/01/24 06:05 05:09 20:04 WBC 8.1 D RBC 4.73 Hgb 14.1 Hct 43.0 MCV 90.9 MCH 29.8 MCHC 32.8 RDW 13.0 Plt Count 218 MPV 9.9 Neut % (Auto) 60.6 Lymph % (Auto) 27.9 [place] % (Auto) 6.4 Eos % (Auto) 4.0 Baso % (Auto) 0.7 Neut # (Auto) 4.9 Lymph # (Auto) 2.3 [place] # (Auto) 0.5 Eos # (Auto) 0.3 Baso # (Auto) 0.1 Sodium 139 Potassium 4.0 Chloride 105 Carbon Dioxide 28 Anion Gap 10.0 BUN 9 Creatinine 0.60 L Estimated Creat Clear 268 Estimated GFR 143 Est GFR ( Amer) 173 Glucose 100 POC Glucose 97 92 Hemoglobin A1c 5.9 Calcium 8.9 Magnesium 1.6 Total Bilirubin 0.4 AST 27 ALT 22 Alkaline Phosphatase 87 Troponin I Total Protein 6.9 Albumin 4.1 Globulin 2.8 Albumin/Globulin Ratio 1.5 Triglycerides 249 H Cholesterol 120 L LDL Cholesterol Direct 63.33 L VLDL Cholesterol 50 H HDL Cholesterol 23 L Cholesterol/HDL Ratio 5.2 H TSH 2.11 Free T4 0.92 Chlamy pneumoniae PCR Adenovirus (PCR) B. pertussis DNA (PCR) Coronavirus OC43 (PCR) Coronavirus HKU1 (PCR) Coronavirus 229E (PCR) SARS-CoV-2 (PCR) Coronavirus NL63 (PCR) Human Metapneumovir PCR Influenza A (H1) PCR Influ A (H1N1/09) PCR Influenza A (H3) PCR Influenza Type A (PCR) Influenza Type B (PCR) M. pneumoniae (PCR) Parainfluenza 1 (PCR) Parainfluenza 2 (PCR) Parainfluenza 3 (PCR) Parainfluenza 4 (PCR) RSV (PCR) Entero/Rhino (PCR) 10/01/24 10/01/24 19:34 12:51 WBC RBC Hgb Hct MCV MCH MCHC RDW Plt Count MPV Neut % (Auto) Lymph % (Auto) [place] % (Auto) Eos % (Auto) Baso % (Auto) Neut # (Auto) Lymph # (Auto) [place] # (Auto) Eos # (Auto) Baso # (Auto) Sodium Potassium Chloride Carbon Dioxide Anion Gap BUN Creatinine Estimated Creat Clear Estimated GFR Est GFR ( Amer) Glucose POC Glucose Hemoglobin A1c Calcium Magnesium Total Bilirubin AST ALT Alkaline Phosphatase Troponin I 0.01 Total Protein Albumin Globulin Albumin/Globulin Ratio Triglycerides Cholesterol LDL Cholesterol Direct VLDL Cholesterol HDL Cholesterol Cholesterol/HDL Ratio TSH Free T4 Chlamy pneumoniae PCR Not detected Adenovirus (PCR) Not detected B. pertussis DNA (PCR) Not detected Coronavirus OC43 (PCR) Not detected Coronavirus HKU1 (PCR) Not detected Coronavirus 229E (PCR) Not detected SARS-CoV-2 (PCR) Not detected Coronavirus NL63 (PCR) Not detected Human Metapneumovir PCR Not detected Influenza A (H1) PCR Not detected Influ A (H1N1/09) PCR Not detected Influenza A (H3) PCR Not detected Influenza Type A (PCR) Not detected Influenza Type B (PCR) Not detected M. pneumoniae (PCR) Not detected Parainfluenza 1 (PCR) Not detected Parainfluenza 2 (PCR) Not detected Parainfluenza 3 (PCR) Not detected Parainfluenza 4 (PCR) Not detected RSV (PCR) Not detected Entero/Rhino (PCR) Not detected DS: Diagnosis Discharge Diagnosis (1) Unstable angina: Status: Acute Code(s): I20.0 - Unstable angina (2) DM2 (diabetes mellitus, type 2): Status: Acute Code(s): E11.9 - Type 2 diabetes mellitus without complications (3) HTN (hypertension): Status: Acute Code(s): I10 - Essential (primary) hypertension (4) HLD (hyperlipidemia): Status: Acute Code(s): E78.5 - Hyperlipidemia, unspecified (5) Coronary artery disease: Status: Chronic Code(s): I25.10 - Atherosclerotic heart disease of [place] coronary artery without angina pectoris Qualifiers: Associated angina: with unstable angina Coronary Disease-Associated Artery/Lesion type: [place] artery [place] vs. transplanted heart: [place] heart Qualified Code(s): I25.110 - Atherosclerotic heart disease of [place] coronary artery with unstable angina pectoris (6) History of hemorrhagic cerebrovascular accident (CVA) without residual deficits: Status: Chronic Code(s): Z86.73 - Personal history of transient ischemic attack (TIA), and cerebral infarction without residual deficits Meds Home Medications and Allergies Home Medications ?Medication ?Instructions ?Recorded ?Confirmed ?Type amlodipine 10 mg tablet 5 mg PO DAILY blood pressure 11/10/22 10/01/24 History atorvastatin 80 mg tablet 80 mg PO HS Cholesterol 11/10/22 10/01/24 History buprenorphine 8 mg-naloxone 2 mg 2.5 tab sublingual DAILY WITHDRAWAL 11/10/22 10/01/24 History sublingual tablet clopidogrel 75 mg tablet 75 mg PO DAILY Blood Thinner 11/10/22 10/01/24 History ezetimibe 10 mg tablet 10 mg PO DAILY Cholesterol 11/10/22 10/01/24 History modafinil 200 mg tablet 200 mg PO DAILY Narcolepsy 11/10/22 10/01/24 History pantoprazole 40 mg tablet,delayed 40 mg PO DAILY GERD 11/10/22 10/01/24 History release valsartan 80 mg tablet 160 mg PO DAILY Blood pressure 11/10/22 10/01/24 History aspirin 81 mg tablet,delayed 81 mg PO DAILY #0 tabs 11/11/22 10/01/24 Rx release isosorbide mononitrate 60 mg 60 mg PO DAILY blood pressure 30 04/07/23 10/01/24 Rx tablet,extended release 24 hr days #30 tabs paroxetine HCl 20 mg tablet 20 mg PO DAILY 04/07/23 10/01/24 History potassium citrate 99 mg capsule 99 mg PO DAILY 04/07/23 10/01/24 History semaglutide 0.25 mg or 0.5 mg (2 0.25 mg (0.368 mL) SQ WEEKLY #3 mL 04/28/23 10/01/24 Rx mg/3 mL) subcutaneous pen injector (Ozempic) furosemide 20 mg tablet 40 mg PO DAILY 10/01/24 10/01/24 History metformin 500 mg tablet 1,000 mg PO DAILY 10/01/24 10/01/24 History metoprolol succinate 100 mg 50 mg PO DAILY 10/01/24 10/01/24 History tablet,extended release 24 hr New Prescriptions to Start Prescriptions: Allergies Allergy/AdvReac Type Severity Reaction Status Date / Time No Known Allergies Allergy Verified 10/01/24 16:55 Discharge Plan Disposition Patient Disposition: Home, Self-Care Condition: Fair Follow up Plan Follow up with: Sherry Salmeron APRN [Nurse Practitioner, Cardiology] - 2 weeks Prescriptions/Medication Reconciliation: Continued paroxetine HCl 20 mg tablet 20 mg PO DAILY Patient Comments: TAKE ONE TABLET BY MOUTH DAILY EVERY MORNING potassium citrate 99 mg capsule 99 mg PO DAILY isosorbide mononitrate 60 mg tablet extended release 24 hr 60 mg PO DAILY 30 Days Qty: 30 3RF Patient Comments: Take 1 tablet by mouth Daily. Ozempic 0.25 mg or 0.5 mg (2 mg/3 mL) pen injector 0.25 mg SQ WEEKLY Qty: 3 4RF Rx Instructions: for 4 weeks modafinil 200 mg tablet 200 mg PO DAILY Patient Comments: TAKE ONE TABLET BY MOUTH DAILY EVERY MORNING buprenorphine-naloxone 8-2 mg tablet, sublingual 2.5 tab SUBLINGUAL DAILY Patient Comments: take 2&1/2 tabs sublingually once daily atorvastatin 80 mg tablet 80 mg PO HS Patient Comments: TAKE ONE TABLET BY MOUTH AT BEDTIME valsartan 80 mg tablet 160 mg PO DAILY Patient Comments: TAKE ONE TABLET BY MOUTH DAILY clopidogrel 75 mg tablet 75 mg PO DAILY Patient Comments: Take 1 tablet by mouth Daily. Rx Instructions: Dr. Nuñez indicated patient takes Effient and Clopidogrel together. amlodipine 10 mg tablet 5 mg PO DAILY Patient Comments: TAKE ONE TABLET BY MOUTH DAILY pantoprazole 40 mg tablet,delayed release (DR/EC) 40 mg PO DAILY Patient Comments: TAKE ONE TABLET BY MOUTH DAILY ezetimibe 10 mg tablet 10 mg PO DAILY Patient Comments: TAKE ONE TABLET BY MOUTH DAILY aspirin 81 mg Tablet,Delayed Release (Dr/Ec) 81 mg PO DAILY Qty: 0 0RF metoprolol succinate 100 mg tablet extended release 24 hr 50 mg PO DAILY metformin 500 mg Tablet 1,000 mg PO DAILY furosemide 20 mg tablet 40 mg PO DAILY Problem Reconciliation Problems Reviewed?: Yes Patient Discharge Instructions Patient Instructions: DI for Angina, DI for Cardiac Catheterization, DI for Surgical Site Infection Print Language: Armenian Providers Primary Care Provider: Mary Nuñez Admit Provider: Russ Islas Attending Provider: Russ Islas
--- NOTE | 2024-10-02 18:30 | CA_ITS ---
APPROVED REPORT EXAM: Comprehensive 2D, Doppler, and color-flow Echocardiogram Md Physician Dermatologist: Sarah Hernandez CRT Ht: 6 ft 0 in Wt: 284lbs BSA: 2.47 BP: 137/83 mmHg Indications: Chest Pain, CVA/TIA, Diabetes, Hyperlipidemia, Hypertension/HDD 2D Dimensions LA Volume 59.50 mL LA Volume Index 23.50 mL/m2 (M/F) 16-34 M-Mode Dimensions RVDd 2.34 cm (0.9-2.6) LA Diam 4.17 cm (1.9-4.0) LVDd 4.67 cm (3.5-5.7) LVDs 3.23 cm (3.5-5.7) IVSd 1.57 cm (0.6-1.1) PWd 1.40 cm (0.6-1.1) EF (Teich) 58.40% FS 30.80% EDV (Teich) 100.80 mL ESV (Teich) 41.90 mL LV Diastology E Decel Time 277 (160-240 msec) E/A Ratio 0.77 MED A' 13.80 cm/s LAT A' 12.90 cm/s Aortic Valve AO Peak GR. 7.50 mmHg Mitral Valve MV E Max Shantanu. 85.0 (40-130 cm/s) MV A Velocity 110.0 (40-130 cm/s) E/A Ratio 0.77 MV PHT 81.0 ms Pulmonary Valve PV Peak Velocity 106.0 (50-150 cm/s) Tricuspid Valve TR P. Velocity 146.00 cm/s RAP Estimate 10.00 mmHg RVSP 18.50 mmHg Left Ventricle The left ventricle is normal size. Left ventricular systolic function is normal. The left ventricular ejection fraction is within the normal range. Proximal septal thickening is present. There is normal LV segmental wall motion. Transmitral Doppler flow pattern suggests impaired LV relaxation. LVEF is 55% Right Ventricle The right ventricle is normal size. The right ventricular systolic function is normal. Atria The left atrium size is normal. The right atrium size is normal. There is no color Doppler evidence of interatrial shunt. Aortic Valve The aortic valve opens well. There is no hemodynamically significant aortic valvular stenosis. No aortic regurgitation is present. Mitral Valve The mitral valve is normal in structure. No evidence of mitral valve stenosis. Trace mitral regurgitation is present. Tricuspid Valve The tricuspid valve leaflets are thin and pliable. Trace tricuspid regurgitation. There is insufficient TR jet to estimate RVSP. Pulmonic Valve The pulmonary valve is grossly normal in structure. Trace pulmonic valve regurgitation is present. Great Vessels The aortic root is normal in size. The ascending aorta is mildly dilated, measuring 3.8 cm in diameter. IVC is normal in size and collapses >50% with inspiration. Pericardium There is no pericardial effusion. Other Information Study Quality: Fair Conclusion Normal biventricular systolic function. No significant valvular stenosis or regurgitation. The ascending aorta is mildly dilated, measuring 3.8 cm in diameter. Correlation with new or recent CTA chest is suggested. Electronically signed by : Nia Li MD 10/02/2024 11:56:09
--- NOTE | 2024-10-03 10:25 | SW/DCPLANNER ---
Spoke with patient on the phone. Patient stated that he is doing good. Patient stated that he has not heard from cardiology to schedule his follow up appointment. I called cardiology and scheduled his appointment for Oct 16 at 1:30. Patient stated that he was able to get his new medicine picked up. Patient stated that he was wondering when he could return to work. I asked [employer] and they stated normally after they see them for their 2 week follow up. Patient stated that he has no concerns or questions at this time. Eugene Cunningham
[2024-10-08 06:12] LABS: POC Glucose,Bedside 106 gm/dL (70-110)
== END 2024-10-02 17:25 | disposition home or self-care (01) ==
LOC: ER 14:35 → 2ND 16:02
PROVIDERS: Internal Medicine; Admitting Provider Student in an Organized Health Care Education/Training Program; Emergency Provider Student in an Organized Health Care Education/Training Program; PCP Emergency Medicine; Visit Provider Student in an Organized Health Care Education/Training Program
PROC: 4A023N7 Measurement of Cardiac Sampling and Pressure, Left Heart, Percutaneous Approach (ICD-10-PCS; CPT 93452; principal; 2024-10-02 11:15)
DX: I25.110 Atherosclerotic heart disease of native coronary artery with unstable angina pectoris (principal); I11.0 Hypertensive heart disease with heart failure; E11.9 Type 2 diabetes mellitus without complications; I50.32 Chronic diastolic (congestive) heart failure; E78.5 Hyperlipidemia, unspecified; K21.9 Gastro-esophageal reflux disease without esophagitis; F41.9 Anxiety disorder, unspecified; E66.9 Obesity, unspecified; F17.200 Nicotine dependence, unspecified, uncomplicated; F11.91 Opioid use, unspecified, in remission; F32.A Depression, unspecified; G47.33 Obstructive sleep apnea (adult) (pediatric); Z68.37 Body mass index [BMI] 37.0-37.9, adult; Z95.5 Presence of coronary angioplasty implant and graft; Z86.73 Personal history of transient ischemic attack (TIA), and cerebral infarction without residual deficits; Z79.82 Long term (current) use of aspirin; Z79.02 Long term (current) use of antithrombotics/antiplatelets; Z79.84 Long term (current) use of oral hypoglycemic drugs; Z79.85 Long-term (current) use of injectable non-insulin antidiabetic drugs; Z79.899 Other long term (current) drug therapy; Z11.52 Encounter for screening for COVID-19
CPT/HCPCS: 0223U; 36415; 71275; 80053; 80061; 82962; 83036; 83735; 83880; 84439; 84443; 84484; 85025; 86140; 87636; 93005; 93306; 93458; 96361; 96374; 96375; 96376; 99152; 99285; C1725; C1769; G0378; J1200; J1644; J1938; J2003; J2250; J2270; J3010; J7040; Q9967